=== PATIENT | female | born 1950 | race Caucasian/White ===

== ENCOUNTER → 2017-11-09 14:45 | Outpatient (BNVA) | payer MEDICARE, BC, SELFPAY | PROVIDERS: PCP Family Medicine; Visit Provider Psychiatry & Neurology Neurology | DX: G24.5 Blepharospasm (principal); G35 Multiple sclerosis | CPT/HCPCS: 99205 ==

== ENCOUNTER 2018-04-06 00:58 | Outpatient (CLI) | payer MEDICARE, BC, SELFPAY ==
--- NOTE | 2018-04-06 11:23 | DI.RAD_ITS ---
SYMPTOMS/DIAGNOSIS: DIFFICULTY SWALLOWING PA AND LATERAL CHEST: There are no prior comparison exams. The cardiac and mediastinal contours have a normal appearance. The lungs are well inflated and clear. No infiltrate or effusion is seen. There is no visible hiatal hernia or esophageal dilatation. There is scoliosis of the upper thoracic spine. IMPRESSION: No acute abnormality.
--- NOTE | 2018-04-06 11:44 | DI.US_ITS ---
SYMPTOMS/DIAGNOSIS: DIFFICULTY SWALLOWING, RIGHT SIDE SORE WHEN SWALLOWING, STABBING SENSATION WHEN COUGHING, ? THYMOMA NECK ULTRASOUND: There are no prior comparison exams. The overall thyroid echotexture is slightly heterogeneous. The right lobe measures 1.4 x 1.5 x 3.7 cm. There is a 10 mm isoechoic nodule in the mid right lobe of the thyroid. There are no cystic areas of associated calcifications. A similar-appearing isoechoic nodule is seen at the lower pole measuring 9 mm in greatest dimension. The left lobe measures 1.3 x 1.1 x 4.2 cm. There is a circumscribed hypoechoic nodule at the upper pole of the left lobe and a 3 mm hypoechoic nodule at the mid left lobe. No suspicious nodules are identified. Normal size lymph nodes were seen on both sides of the anterior neck. No suspicious masses or fluid collections are seen. IMPRESSION: Mildly heterogeneous thyroid with several small benign-appearing nodules.
== END 2018-04-06 01:18 ==
PROVIDERS: PCP Family Medicine; Visit Provider Family Medicine
DX: R13.10 Dysphagia, unspecified (principal); E04.2 Nontoxic multinodular goiter
CPT/HCPCS: 76536; 71046

== ENCOUNTER 2018-09-21 00:37 | Outpatient (CLI) | payer MEDICARE, BC, SELFPAY ==
--- NOTE | 2018-09-21 08:00 | CER_ITS ---
ADDENDUM The report should say: Atrial fibrillation was present.? Total time in atrial fibrillation 26 minutes.? Longest episode 18 minutes.? Average heart rate in atrial fibrillation 57 bpm DP/ml 11/27/18 d&t Emerson Hitchcock M.D. DATE OF DICTATION: October 23, 2018 PREVENTICE MONITOR REPORT STUDY INDICATION: Paroxysmal atrial fibrillation. REQUESTING PROVIDER: Adalgisa Cho M.D. FINDINGS: The patient was monitored for 26 days and 8 hours. Average heart rate 71 bpm, range 55 to 111 bpm. Atrial fibrillation was present. Total time in atrial fibrillation 26 minutes. Longest episode 52 minutes. Average heart rate in atrial fibrillation 57 bpm. One 6-beat ventricular run, 191 bpm. No pauses greater than 3 seconds. No high-degree heart block. Sixteen patient events. Two episode correlated with an atrial runs with heart rates of 145 to 151 bpm. One episode correlated with atrial fibrillation, with heart rate of 130 bpm. One event correlated with PAC's. All other events did not correlate with arrhythmias. FINAL INTERPRETATION: Paroxysmal atrial fibrillation with overall controlled ventricular response, at times symptomatic. CC: Dictated by: MINDY HUSAIN,PhD,ABHISHEK Dictated:: 10/23/18 0823 <Electronically signed by Abhishek Doherty M.D.> 10/23/18 0439
--- NOTE | 2018-10-23 10:43 | CER_ITS ---
DATE OF DICTATION: October 23, 2018 PREVENTICE MONITOR REPORT STUDY INDICATION: Paroxysmal atrial fibrillation. REQUESTING PROVIDER: Adalgisa Cho M.D. FINDINGS: The patient was monitored for 26 days and 8 hours. Average heart rate 71 bpm, range 55 to 111 bpm. Atrial fibrillation was present. Total time in atrial fibrillation 26 minutes. Longest episode 52 minutes. Average heart rate in atrial fibrillation 57 bpm. One 6-beat ventricular run, 191 bpm. No pauses greater than 3 seconds. No high-degree heart block. Sixteen patient events. Two episode correlated with an atrial runs with heart rates of 145 to 151 bpm. One episode correlated with atrial fibrillation, with heart rate of 130 bpm. One event correlated with PAC's. All other events did not correlate with arrhythmias. FINAL INTERPRETATION: Paroxysmal atrial fibrillation with overall controlled ventricular response, at times symptomatic.
== END 2018-09-21 00:57 ==
PROVIDERS: PCP Internal Medicine; Visit Provider Internal Medicine
DX: I48.0 Paroxysmal atrial fibrillation (principal)
CPT/HCPCS: 93270

== ENCOUNTER 2018-10-23 08:23 | Outpatient (CLI) | payer MEDICARE, BC, SELFPAY | END 2018-10-23 08:43 | PROVIDERS: PCP Internal Medicine; Referring Provider Internal Medicine; Visit Provider Student in an Organized Health Care Education/Training Program | DX: I48.0 Paroxysmal atrial fibrillation (principal) | CPT/HCPCS: 93228 ==

== ENCOUNTER → 2018-10-30 09:15 | Outpatient (BNVA) | payer MEDICARE, BC, SELFPAY | PROVIDERS: PCP Internal Medicine; Visit Provider Psychiatry & Neurology Neurology | DX: G35 Multiple sclerosis (principal); G24.5 Blepharospasm | CPT/HCPCS: 99214 ==

== ENCOUNTER 2018-11-20 00:51 | Outpatient (CLI) | payer MEDICARE, BC, SELFPAY ==
--- NOTE | 2018-11-20 11:28 | DI.MRI_ITS ---
EXAM: MR BRAIN WO CLINICAL HISTORY: multiple sclerosis, G35, stable. TECHNIQUE: Multiplanar multisequence MRI was performed. COMPARISON: MRI ORBIT/FACE W/WO CONTRAST from 06/26/2009 FINDINGS: MR examination of the brain was performed according to the usual protocol with additional of FLAIR im aging in sagittal projection. Current examination is compared with prior MRI of 02/03/2017. Note is again made of numerous areas of abnormal signal in periventricular white matter in a pattern consist ent with multiple sclerosis. No gross interval change in appearance in comparison with the previous study, there may be slight interval decrease in intensity of the periventricular lesions since the pr evious examination. No new lesion identified. Diffusion-weighted imaging is unremarkable with no ev idence of infarct. Susceptibility weighted imaging unremarkable with no evidence of hemorrhage. There is normal flow void in the czdeqw-nw-Rnkeqa vasculature. The orbital and temporal bone structu res appear intact. Pituitary appears intact. IMPRESSION: Stable appearance of periventricular white matter lesions since 02/03/2017, patient reportedly has a history of multiple sclerosis.
== END 2018-11-20 01:11 ==
PROVIDERS: PCP Internal Medicine; Visit Provider Psychiatry & Neurology Neurology
DX: G35 Multiple sclerosis (principal)
CPT/HCPCS: 70551

== ENCOUNTER → 2018-12-13 09:15 | Outpatient (BNVA) | payer MEDICARE, BC, SELFPAY | PROVIDERS: PCP Internal Medicine; Referring Provider Internal Medicine; Visit Provider Psychiatry & Neurology Neurology | DX: G24.5 Blepharospasm (principal); G35 Multiple sclerosis | CPT/HCPCS: 99214 ==

== ENCOUNTER 2019-03-14 02:25 | Outpatient (CLI) | payer MEDICARE, BC, SELFPAY ==
--- NOTE | 2019-03-14 08:12 | DI.MAMMO_ITS ---
EXAM: MG MAMMO SCREENING CLINICAL HISTORY: screening,Z12.39. TECHNIQUE: Bilateral full field digital CC and MLO mammographic images were obtained with 3D tomosyn thesis and utilizing computer aided detection (CAD). COMPARISON: Available for comparison. FINDINGS: Masses/Architectural Distortion: None seen. Microcalcifications: No suspicious pleomorphic-type are seen. Skin Thickening/Nipple Retraction: None. IMPRESSION: 1. No significant interval change with no specific features of malignancy noted. 2. Unless there is more urgent need, screening mammography is recommended, as per [employer] guidelines. ACR BI-RAD Category- 1 Negative Breast Density - Category B - Scattered areas of fibroglandular density A negative radiographic report should not delay biopsy if a dominant or clinically suspicious mass is present. Up to ten percent of cancers are not identified on mammography. A negative report may reinforce clinical impression. Adenosis and dense breasts may obscure an underlying neoplasm. False positive reports average 6 to 10%. Patient will receive a letter notifying them of these results.
== END 2019-03-14 02:45 ==
PROVIDERS: PCP Internal Medicine; Visit Provider Internal Medicine
DX: Z12.31 Encounter for screening mammogram for malignant neoplasm of breast (principal)
CPT/HCPCS: 77063; 77067

== ENCOUNTER 2019-03-14 02:37 | Outpatient (CLI) | payer MEDICARE, BC, SELFPAY ==
[2019-03-14 08:53] LABS: Calculated LDL 147 mg/dL (<100); Cholesterol 234 mg/dL (<200); Glucose 86 mg/dL (74-106); HDL Cholesterol 76 mg/dL (40-60); Triglyceride 56 mg/dL (<150)
== END 2019-03-14 02:57 ==
PROVIDERS: PCP Internal Medicine; Visit Provider Internal Medicine
DX: E78.5 Hyperlipidemia, unspecified (principal); Z13.1 Encounter for screening for diabetes mellitus
CPT/HCPCS: 36415; 80061; 82947

== ENCOUNTER 2019-05-31 13:08 | Outpatient (CLI) | payer MEDICARE, BC, SELFPAY ==
--- NOTE | 2019-05-31 15:00 | DI.RAD_ITS ---
EXAM: XR WRIST LT COMPLETE CLINICAL HISTORY: Pain after a fall, has osteoporosis,[id number]. TECHNIQUE: 2D digital imaging was performed. COMPARISON: No exams were available for comparison FINDINGS: BONES: There is a bony fragment seen on the lateral view that appears to project over the region of t he pisiform on the PA and oblique views. Multiple small cysts are seen within the pisiform. Other c ysts are seen in the navicular and ulnar styloid.. JOINTS: The carpal bones are normally aligned. SOFT TISSUE: Posterior soft tissue swelling. IMPRESSION: Bony fragment seen at the dorsal aspect of the wrist overlying the region of the pisiform. This coul d represent acute versus old fracture. DATA REPOSITORY: RADIATION DOSE DELIVERED:
== END 2019-05-31 13:28 ==
PROVIDERS: PCP Internal Medicine; Visit Provider Family Medicine
DX: M25.532 Pain in left wrist (principal); M79.89 Other specified soft tissue disorders; M81.0 Age-related osteoporosis without current pathological fracture; W19.XXXA Unspecified fall, initial encounter
CPT/HCPCS: 73110

== ENCOUNTER → 2019-12-12 09:09 | Outpatient (BNVA) | payer MEDICARE, BC, SELFPAY | PROVIDERS: PCP Internal Medicine; Referring Provider Internal Medicine; Visit Provider Psychiatry & Neurology Neurology | DX: G24.5 Blepharospasm (principal); G35 Multiple sclerosis; I48.0 Paroxysmal atrial fibrillation | CPT/HCPCS: 99214 ==

== ENCOUNTER 2020-11-13 03:30 | Outpatient (CLI) | payer MEDICARE, BC, SELFPAY ==
[2020-11-13 13:42] LABS: HCT 44.2 % (36.0-46.0); HGB 14.9 g/dL (11.2-15.7); MCH 30.3 pg (27.0-33.0); MCHC 33.7 % (32.0-36.0); MPV 10.2 fL (8.0-11.0); Platelet Count 213 10^3/uL (130-400); RBC 4.91 10^6/uL (3.93-5.22); RDW 11.7 % (11.7-14.6); RDW-SD 38.3 fL; WBC 6.72 10^3/uL (4.4-10.8)
[2020-11-13 13:45] LABS: ESR 4 mm/hr (0-30)
[2020-11-14 10:22] LABS: Lyme Ab w Rflx to Lyme Confirm Negative (Negative)
== END 2020-11-13 03:31 | disposition home or self-care (01) ==
LOC: LBO 03:30
PROVIDERS: PCP Internal Medicine; Visit Provider Nurse Practitioner Adult Health
DX: M25.562 Pain in left knee (principal); M25.462 Effusion, left knee
CPT/HCPCS: 36415; 85027; 85652; 86618

== ENCOUNTER → 2020-12-10 09:31 | Outpatient (BNVA) | payer MEDICARE, BC, SELFPAY | PROVIDERS: PCP Internal Medicine; Visit Provider Psychiatry & Neurology Neurology | DX: G24.5 Blepharospasm (principal); G35 Multiple sclerosis; I48.0 Paroxysmal atrial fibrillation | CPT/HCPCS: 99214 ==

== ENCOUNTER 2020-12-10 10:11 | Emergency (ER) | payer MEDICARE, BC, SELFPAY ==
[2020-12-10] VITALS (49 sets, daily range): BP systolic 83–121; BP diastolic 40–100; PULSE 66–165; RESP 15–31; TEMP 36.2; O2SAT 94–99
--- NOTE | 2020-12-10 10:00 | RT.EKG_ITS ---
APPROVED REPORT Exam: Resting ECG Reason for Exam: shortness of breath, tachycardia Patient Location: E HR:151 bpm ECG Measurements Heart Rate 151 AXIS LA [id number] P [id number] QRSd 76 QRS 92 QT 285 T 28 QTc 455 Conclusion Atrial fibrillation with rapid V-rate...A-rate 461 Ventricular premature complex...V complex w/ short R-R interval Right axis deviation...QRS axis ( 91,269) Low voltage, precordial leads...precordial leads <1.0mV. Afib w/ RVR. No STEMI.
--- NOTE | 2020-12-10 10:13 | ED.GENADUL_ITS ---
Discharge Plan Disposition Patient Disposition: HOME Condition: Improving Discharge Details Clinical Impression: Atrial fibrillation Primary Care Provider: Adalgisa Cho ED Provider: Adrienne Alford Home Meds and New Rx's Prescriptions: Continued botox 60 unit IJ .q3 months RF: 0 cholecalciferol (vitamin D3) 2,000 unit tablet 2,000 unit PO DAILY RF: 0 Women's Multivitamin 18 mg iron-400 mcg-500 mg tablet 1 tab PO DAILY RF: 0 alendronate [Fosamax] 70 mg tablet 70 mg PO QWEEK Qty: 12 RF: 3 diltiazem HCl 120 mg capsule,extended release 12 hr 120 mg PO BID RF: 0 Eliquis 5 mg tablet 5 mg PO BID RF: 0 zinc acetate 25 mg (zinc) capsule 25 mg PO DAILY PRNRF: 0 Calcium 600 + D(3) 600 mg calcium- 200 unit capsule PO BID RF: 0 Discharge Instructions Instructions: A-fib (Atrial Fibrillation) (ED) Additional Instructions: Your lab work, EKG and chest x-ray today is reassuring and does not note evidence of acute significant findings. Increase your diltiazem from 1 tab of 120 mg to 2 tabs of 120 mg for a total of 240 mg once daily starting tomorrow. Call your primary care doctor's office tomorrow to schedule a follow-up appointment for reevaluation within the next few days. You have been placed on care management list to help arrange for follow-up appointment with cardiology for reevaluation in the next 2 weeks. You can also call the electronic industrial controls mechanic Dr. Alvarado's office to confirm this appointment. Return immediately to the emergency department if you develop any worsening or new concerning symptoms. Referrals: Anna Alvarado MD [ [facility] STAFF PHYSICIAN] - Discharge Data Discharge Date/Time-TO BE ENTERED AT DEPARTURE: 12/10/20 15:19 Discharge Physician: Adrienne Alford Medical Decision Making 70-year-old female with a history of paroxysmal atrial fibrillation on diltiazem presents with dyspnea on exertion and palpitations with fluttering for the past week. Recent ED visit in [place] with increasing her diltiazem from 120mg to 240mg once daily. She only took 120 mg this morning and has had worsening of her fluttering and shortness of breath. Sent from Dr. Lou's office for her symptoms. Heart rate 140s and A. fib on arrival. EKG notes a rate of 151, atrial fibrillation no STEMI. Blood pressure within normal limits. She has no complaint of chest pain. Will obtain a cardiac work-up and give a dose of diltiazem IV and reassess Heart rate 80s A. fib on reassessment. Patient feels much better. Case discussed with [facility] cardiology who recommended that patient continue her 240 mg diltiazem dosing in the a.m. and follow-up with her PCP in 1 week and with cardiology in 2 weeks. Labs and imaging reviewed and unremarkable. Patient's heart rate remained in the 80s in A. fib. She felt occasional fluttering but felt comfortable going home. She denied any chest pain or shortness of breath. Patient placed on care management list to help arrange for follow-up appointment with cardiology for reevaluation. She was given an additional dose of her 120 mg diltiazem p.o. here per cardiology recommendations. She states she had plenty of her diltiazem at home. Usual and customary return precautions given prior to discharge. Medical Records Medical records reviewed: Yes I reviewed the patient's medical records. Imaging Data Radiologic Study: Radiologist's impression: XR PORTABLE CHEST AP CLINICAL HISTORY: tachycardia, sob, r/o acute disease. TECHNIQUE: 2D digital imaging was performed. COMPARISON: No exams were available for comparison FINDINGS: Heart size is upper normal. The mediastinum is not widened. Chest leads in place Lungs are clear. No infiltrates nor obvious pleural effusions. IMPRESSION: No acute pulmonary findings on this single AP portable view of the chest. Lab Data Lab results reviewed: Yes I reviewed the patient's lab results. Labs: Laboratory Tests Range/Units 12/10/20 12/10/20 10:25 10:25 WBC (4.4-10.8) 10^3/uL 6.84 RBC (3.93-5.22) 10^6/uL 5.45 H Hgb (11.2-15.7) g/dL 16.6 H Hct (36.0-46.0) % 49.4 H MCV (80-95) fL 90.6 MCH (27.0-33.0) pg 30.5 MCHC (32.0-36.0) % 33.6 RDW (11.7-14.6) % 11.9 Plt Count (130-400) 10^3/uL 210 MPV (8.0-11.0) fL 11.6 H Immature Gran % 0.3 Neutrophils % 59.6 Lymphocytes % 31.3 Monocytes % 7.5 Eosinophils % 0.9 Basophils % 0.4 Nucleated RBC % % 0 Absolute Neutrophils (1.2-6.7) 10^3/uL 4.08 Absolute Lymphocytes (1.2-3.4) 10^3/uL 2.14 Absolute Monocytes (0.1-0.8) 10^3/uL 0.51 Absolute Eosinophils (0.0-0.7) 10^3/uL 0.06 Absolute Basophils (0.0-0.2) 10^3/uL 0.03 Sodium (136-145) mmol/L 143 Potassium (3.5-5.1) mmol/L 3.9 Chloride (98-107) mmol/L 106 Carbon Dioxide (21.0-32.0) mmol/L 29.2 Anion Gap (3-11) mmol/L 7.8 BUN (7-18) mg/dL 14 Creatinine (0.55-1.02) mg/dL 0.9 Estimated GFR/1.73 m2 (mL/min/1.73m2) >= 60.00 Glucose (74-106) mg/dL 100 Calcium (8.5-10.1) mg/dL 9.5 Magnesium (1.8-2.4) mg/dL 2.2 Total Bilirubin (0.2-1.0) mg/dL 0.8 AST (15-37) U/L 16 ALT (14-59) U/L 30 Alkaline Phosphatase (46-116) U/L 65 Troponin I (<0.06) ng/mL < 0.05 Total Protein (6.4-8.2) g/dL 7.5 Albumin (3.4-5.0) g/dL 3.9 ECG Data Attestation: I personally reviewed and interpreted this ECG (s) as follows: Interpretation: #1 -- rate of 151, afib w/ rvr, no stemi. #2 -- rate of 86, sinus, no acute st elevation or depression, QRS 83, Qtc 423. HPI General Mode of arrival: ambulatory . Date/Time Provider Initiated Documentation: 12/10/20 10:11 . Limitations to Documentation: no limitations . Information obtained by: patient . HPI Narrative: Pt is a 70yo F w/ a h/o paroxysmal atrial fibrillation diagnosed 5 years ago and taking 120mg diltiazem since then presents for intermittent shortness of breath, worse with exertion, palpitations and fluttering in her chest for the past week. She was recently in [place] for a vacation and has worsening of her palpitations and was seen in an ED in [place] 2 days ago and had a cardiac workup and was given IV diltiazem and her heart rate decreased and was discharged to home and advised to increase her once daily dosing of diltiazem to 240mg. She states she did take her 240mg dosing yesterday morning but only took 120mg this morning as she states she was planning on taking the other 120mg this evening. She is here today because her palpitations and fluttering have gotten progressively worse over the past 2 days. She admits to occasional twinge in her left chest last week but states she has not felt this for the past 4 days. She states she was also started on eliquis upon her discharge from the ED in [place]. Related Data Home Medications Medication Instructions Recorded Confirmed cholecalciferol (vitamin D3) 50 2,000 unit PO DAILY 11/02/17 12/10/20 mcg (2,000 unit) tablet [id number]-Ca carb-vit K 1 tab PO DAILY 11/02/17 12/10/20 18 mg iron-400 mcg-500 mg tablet calcium carbonate-vitamin D3 600 cap PO BID cap 06/12/18 12/10/20 mg calcium-200 unit capsule botox 60 unit IJ .q3 months 08/19/20 12/10/20 alendronate 70 mg tablet 70 mg PO QWEEK #12 tab 09/25/20 12/10/20 apixaban 5 mg tablet 5 mg PO BID 12/10/20 12/10/20 diltiazem HCl 120 mg 120 mg PO BID cap 12/10/20 12/10/20 capsule,extended release 12 hr zinc acetate 25 mg (zinc) capsule 25 mg PO DAILY PRN 12/10/20 12/10/20 Previous Rx's Medication Instructions Recorded alendronate 70 mg tablet 70 mg PO QWEEK #12 tab 09/25/20 Allergies Allergy/AdvReac Type Severity Reaction Status Date / Time No Known Allergies Allergy Verified 12/10/20 10:20 Review of Systems All systems reviewed & are unremarkable except as noted in HPI and below Constitutional Constitutional: Reports as per HPI, Denies chills and Denies fever(s) Eyes Eyes: Denies blurry vision ENT Ears, Nose, Mouth, and Throat: Denies dizziness, Denies sore throat and Denies throat swelling Cardiovascular Cardiovascular: Denies chest pain, Reports palpitations and Reports dyspnea Respiratory Respiratory: Denies cough and Reports dyspnea Gastrointestinal Gastrointestinal: Denies abdominal pain, Denies diarrhea and Denies vomiting Genitourinary Genitourinary: Denies hematuria and Denies dysuria Musculoskeletal Musculoskeletal: Denies back pain and Denies numbness Integumentary/Breasts Skin/Breast: Denies lesions and Denies rash Neurologic Neurologic: Denies dizziness, Denies localized weakness and Denies numbness Endocrine Endocrine: Reports palpitations Allergic/Immunologic Allergic/Immunologic: Denies throat swelling [facility] Medical History (Updated 12/10/20 @ 15:03 by Adrienne Alford DO) Anxiety Cardiac arrhythmia Afib and pVc Cholelithiasis Depression Hiatal hernia History of lumbar puncture Hyperlipidemia Multiple sclerosis Optic neuritis Osteoporosis (01/18/17) Paroxysmal A-fib Polyp of cervix Vitamin D deficiency Surgical History Ankle fracture, left s/p ORIF 2000 or 2005 Ankle fracture, right s/p ORIF 2000 or 2004 History of appendectomy 1967 History of colposcopy with cervical biopsy Family History Mother Hypertension Alzheimer disease Father Migraine FH: mental illness Paternal Grandfather Stomach cancer Paternal Grandmother No problems noted. Maternal Grandfather , Age 40 No problems noted. 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, 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 [employer] Pets and animals: Yes (2) Pets and animals: cat(s) Current gender identity: female How often do you talk on the phone with friends or family?: three or more times per week How often do you get together with friends or relatives?: twice per week How often do you attend christianity or confucianist services?: 4 or more times per year Do you belong to any clubs or organized social groups?: yes Panel score (0-1 are the most socially isolated patients): 3 What type of physical activity do you participate in: none and walking Duration: < 15 minutes/day Jennifer/Gnosticist: Unitarian Universalist Seatbelt use: always Drive intox or ride w/intox truck driver heavy: No Working smoke detector in home: Yes Fire extinguisher in home: Yes Carbon monox detector in home: Yes Firearms in home: No Exam Const General: cooperative, healthy appearing and no acute distress HENMT Head: normal to inspection Face and sinus: normal facial exam Eyes General: appearance normal, both eyes and all related structures EOM: EOM intact bilaterally Neck Neck: normal visual inspection and No submandibular swelling Lymphatic: no lymphadenopathy noted Chest Chest: normal inspection of the chest and no tenderness Resp Effort & Inspection: normal respiratory effort and able to speak in complete sen tences Auscultation: clear to auscultation bilaterally Cardio Rate: tachycardic Rhythm: regular rhythm GI Inspection: normal to inspection Palpation: soft, not firm, not rigid and nontender Auscultation: normal bowel sounds Back/Spine/Pelvis Pelvis: no pain with anterior-posterior compression Skin General skin exam: no rashes or lesions noted Neuro General: patient alert, patient awake and patient oriented x3 Cognition: normal cognition Speech: speech normal Motor: muscle tone normal throughout Sensory Exam: no sensory deficits noted Extrem General: normal to inspection, full ROM, capillary refill normal, no calf tenderness bilaterally and no edema Psych Appearance: grossly normal Mental Status: mental status grossly normal Speech and Movement: speech and movement normal Affect: normal affect
--- NOTE | 2020-12-10 10:30 | DI.RAD_ITS ---
Exam(s) XR PORTABLE CHEST AP EXAM: XR PORTABLE CHEST AP CLINICAL HISTORY: tachycardia, sob, r/o acute disease. TECHNIQUE: 2D digital imaging was performed. COMPARISON: No exams were available for comparison FINDINGS: Heart size is upper normal. The mediastinum is not widened. Chest leads in place Lungs are clear. No infiltrates nor obvious pleural effusions. IMPRESSION: No acute pulmonary findings on this single AP portable view of the chest. DATA REPOSITORY: RADIATION DOSE DELIVERED: All CT scans at this facility use at least one of these dose optimization techniques: automated exposure control; mA and/or kV adjustment per patient size (includes targeted e xams where dose is matched to clinical indication); or iterative reconstruction.
[2020-12-10 10:35] LABS: Abs Immature Grans 0.02 10^3/uL (0.0-0.06); Absolute Basophil Count 0.03 10^3/uL (0.0-0.2); Absolute Eosinophil Count 0.06 10^3/uL (0.0-0.7); Absolute Lymphocyte Count 2.14 10^3/uL (1.2-3.4); Absolute Monocyte Count 0.51 10^3/uL (0.1-0.8); Absolute Neutrophil Count 4.08 10^3/uL (1.2-6.7); Basophils % 0.4; Eosinophils % 0.9; HCT 49.4 % (36.0-46.0); HGB 16.6 g/dL (11.2-15.7); Immature Grans % 0.3; Lymphocytes % 31.3; MCH 30.5 pg (27.0-33.0); MCHC 33.6 % (32.0-36.0); MCV 90.6 fL (80-95); MPV 11.6 fL (8.0-11.0); Monocytes % 7.5; Neutrophils % 59.6; Nucleated RBC 0 %; Platelet Count 210 10^3/uL (130-400); RBC 5.45 10^6/uL (3.93-5.22); RDW 11.9 % (11.7-14.6); RDW-SD 39.4 fL; WBC 6.84 10^3/uL (4.4-10.8)
[2020-12-10 10:51] LABS: ALT 30 U/L (14-59); AST 16 U/L (15-37); Albumin 3.9 g/dL (3.4-5.0); Alkaline Phosphatase 65 U/L (46-116); Anion Gap 7.8 mmol/L (3-11); BUN 14 mg/dL (7-18); Bilirubin, Total 0.8 mg/dL (0.2-1.0); CO2 29.2 mmol/L (21.0-32.0); CREATININE 0.9 mg/dL (0.55-1.02); Calcium 9.5 mg/dL (8.5-10.1); Chloride 106 mmol/L (98-107); Glucose 100 mg/dL (74-106); Magnesium 2.2 mg/dL (1.8-2.4); Potassium 3.9 mmol/L (3.5-5.1); Sodium 143 mmol/L (136-145); Total Protein 7.5 g/dL (6.4-8.2)
[2020-12-10] MEDS: Normal Saline 500 ML IV ×2 (10:54→11:42)
[2020-12-10] MEDS: dilTIAZem 25 MG/5 ML VIAL 20 MG IVP (10:55)
[2020-12-10 10:57] LABS: Troponin I < 0.05 ng/mL (<0.06)
--- NOTE | 2020-12-10 11:00 | RT.EKG_ITS ---
APPROVED REPORT Exam: Resting ECG Reason for Exam: rapid heart rate Patient Location: E HR:86 bpm ECG Measurements Heart Rate 86 AXIS IA [id number] P [id number] QRSd 83 QRS 86 QT 353 T 23 QTc 423 Conclusion Atrial fibrillation...V-rate 70-105, irreg A-activity Low voltage, precordial leads...precordial leads <1.0mV. Afib. No STEMI. I have reviewed and interpreted ECG and agree with software generated interpretation.
--- NOTE | 2020-12-10 11:54 | NUR.NOTE ---
Nursing Note: Referral faxed to [facility] Cardiology for follow up of afib, discuss medications, in 2 to 3 weeks. [facility] Cardiology were consulted. Brittaney Ramos
[2020-12-10] MEDS: dilTIAZem CD 120 MG CAPCR PO (12:25)
== END 2020-12-10 15:19 | disposition home or self-care (01) ==
PROVIDERS: Emergency Provider Physician Assistant; PCP Internal Medicine
DX: I48.0 Paroxysmal atrial fibrillation (principal); R06.00 Dyspnea, unspecified; R00.0 Tachycardia, unspecified
CPT/HCPCS: 36415; 80053; 93005; 96361; 96374; 99214; 99284; 71045; 83735; 84484; 85025; 93010

== ENCOUNTER 2020-12-11 11:41 | Outpatient (CLI) | payer MEDICARE, BC, SELFPAY ==
--- NOTE | 2020-12-11 11:30 | RT.EKG_ITS ---
APPROVED REPORT Exam: Resting ECG Reason for Exam: afib Patient Location: O HR:110 bpm ECG Measurements Heart Rate 110 AXIS DC [id number] P [id number] QRSd 77 QRS 64 QT 323 T 26 QTc 437 Conclusion Atrial fibrillation...V-rate 80-135, irreg A-activity Low voltage, precordial leads...precordial leads <1.0mV
== END 2020-12-11 11:42 | disposition home or self-care (01) ==
LOC: DI.KIM 11:42
PROVIDERS: PCP Internal Medicine; Visit Provider Family Medicine
DX: I48.91 Unspecified atrial fibrillation (principal)
CPT/HCPCS: 93010

== ENCOUNTER 2020-12-22 22:03 | Inpatient (IN) | payer MEDICARE, BC, SELFPAY ==
[2020-12-22] VITALS (23 sets, daily range): BP systolic 101–130; BP diastolic 72–89; PULSE 106–142; RESP 7–23; O2SAT 93–99
--- NOTE | 2020-12-22 22:00 | RT.EKG_ITS ---
APPROVED REPORT Exam: Resting ECG Reason for Exam: rapid heart rate Patient Location: E HR:139 bpm ECG Measurements Heart Rate 139 AXIS WA 130 P 94 QRSd 87 QRS 0 QT 327 T 49 QTc 498 Conclusion Probable aflutter Low voltage, precordial leads. Repol abnrm diffuse leads...ST-T neg, ant/lat/inf
--- NOTE | 2020-12-22 22:11 | ED.GENADUL_ITS ---
Discharge Plan Disposition Condition: Improving Discharge Details Chief Complaint: Palpitatns Admit Date/Time: 12/24/20 16:12 Admit Provider: Emerson Kohler Attending Provider: Emerson Kohler Primary Care Provider: Adalgisa Cho ED Provider: Soha Martínez Discharge Instructions Activity:: Activity as Tolerated Equipment/Supplies:: No Equipment Needed Diet:: Normal Diet Discharge Orders Discharge Orders: Discharge Order (Routine); Ordered 12/25/20 Ordered By: Shiraz Harrell Discharge Data Discharge Date/Time-TO BE ENTERED AT DEPARTURE: 12/23/20 08:19 Medical Decision Making Patient is a pleasant 70-year-old female presenting today with chief complaint of tachycardia. Patient reports this began around 7:30 PM today. Has a history of atrial fibrillation has been here for rapid ventricular response recently, was last seen on 12/10/2020. At that time, patient cardioverted with 20 mg of IV Cardizem. Patient reports that since being discharged she has worked with your primary care determine what medication will work well for her. She is intermittently gone into the 120s but has not stands not been in the 140s like she is today. She reports that this morning she took 240 mg of diltiazem. This evening at 7 PM prior to the onset of her symptoms she took 12.5 mg of metop rolol. When her symptoms began she then contacted her primary care who initially advised to take another 120 mg of diltiazem. She then spoke with him again and was advised to take 25 mg of metoprolol. She denies feeling short of breath. She not had any chest pain. She does feel slightly lightheaded. Feels that this rate is very regular compared to when she has been here in the past. Said that she can have a fluttering sensation. Patient is anticoagulated on apixaban twice daily. She denies any caffeine or other stimulants. She denies any other new medications or herbal supplementations. States that she has been feeling well, and has not had any fevers or chills. On exam, patient appears nontoxic. Her heart rate is in the 140s but she appears clinically well. Blood pressure stable at 130/89. Her lungs are clear. Patient is tachycardic on auscultation but otherwise cardiac exam is normal. No lower extremity edema or calf tenderness. EKG was reviewed by Dr. Stuart. Patient is in a rapid rate at 139 probable a flutter. Will give 10 mg IV Cardizem and reassess. Patient continues to have a heart rate in the 130s. Blood pressures slightly lower than a systolic of 107. Patient continues to feel well. Patient is receiving IV hydration. Labs without sigfnicant abnromality, baseline for hte patient. Troponin WNL. Reviewed previously labs and added on TSH with reflex T4. Dr. Kohler evaluated the patient. He recommended 2.5mg of Verapamil. Patient received total of 5mg Verapamil with improvement of her rate. Dr. Kohler at bed side. Patient admitted for continued monitoring. Hemodynamically stable, feeling much improved with rate control HPI General Mode of arrival: ambulatory . Date/Time Provider Initiated Documentation: 12/22/20 22:04 . Limitations to Documentation: no limitations . Information obtained by: patient and RN notes reviewed . History of Present Illness 70 year old F presents to the emergency department with the chief c omplaint of elevated HR, described as moderate and similar to prior episodes, Quality is described as constant (states she is feeling slightly light headed), Patient reports no radiation. Patient started experiencing this hour(s) (1930) and it has been constant. No relieving factors improve symptom(s), No exacerbating factors reported . Patient notes denies chest pain, cough, diaphoresis, fever/chills, loss of appetite, nausea/vomiting, rash, shortness of breath, syncope and weakness. Patient did receive the following treatments prior to arrival, other (metoprolol and diltiazem) Related Data Home Medications Medication Instructions Recorded Confirmed cholecalciferol (vitamin D3) 50 2,000 unit PO DAILY 11/02/17 12/22/20 mcg (2,000 unit) tablet tihzdrml-xzo-kyua-FA-Ca carb-vit K 1 tab PO DAILY 11/02/17 12/22/20 18 mg iron-400 mcg-500 mg tablet calcium carbonate-vitamin D3 600 cap PO BID cap 06/12/18 12/10/20 mg calcium-200 unit capsule botox 60 unit IJ .q3 months 08/19/20 12/10/20 alendronate 70 mg tablet 70 mg PO QWEEK #12 tab 09/25/20 12/22/20 zinc acetate 25 mg (zinc) capsule 25 mg PO DAILY PRN 12/10/20 12/22/20 Eliquis 5 mg PO BID #60 tab 12/25/20 bisoprolol fumarate 5 mg PO DAILY #30 tab 12/25/20 verapamil [Calan SR] 240 mg PO DAILY #30 tab 12/25/20 Previous Rx's Medication Instructions Recorded alendronate 70 mg tablet 70 mg PO QWEEK #12 tab 09/25/20 Eliquis 5 mg PO BID #60 tab 12/25/20 bisoprolol fumarate 5 mg PO DAILY #30 tab 12/25/20 verapamil [Calan SR] 240 mg PO DAILY #30 tab 12/25/20 Allergies Allergy/AdvReac Type Severity Reaction Status Date / Time No Known Allergies Allergy Verified 12/22/20 22:12 General PATRIZIA: 2 Review of Systems Constitutional Constitutional: Reports as per HPI, Denies chills, Denies fever(s) and Denies headache(s) ENT Ears, Nose, Mouth, and Throat: Denies headache(s) Cardiovascular Cardiovascular: Reports as per HPI, Denies chest pain, Denies chest pain with activity, Denies lightheadedness, Denies radiating jaw, neck or arm pain, Reports palpitations and Reports dyspnea Respiratory Respiratory: Reports as per HPI, Denies chest congestion, Denies cough, Denies pain on inspiration, Denies pain with cough, Reports dyspnea and Denies wheezing Gastrointestinal Gastrointestinal: Reports as per HPI, Denies abdominal pain, Denies diarrhea, Denies nausea and Denies vomiting Musculoskeletal Musculoskeletal: Reports as per HPI and Denies back pain Integumentary/Breasts Skin/Breast: Reports as per HPI and Denies rash Neurologic Neurologic: Reports as per HPI and Denies headache(s) Endocrine Endocrine: Reports palpitations Allergic/Immunologic Allergic/Immunologic: Denies wheezing [facility] Active Problem List Atrial flutter (Acute) Atrial fibrillation (Chronic) Functional disorder of intestine (Acute) Large breasts (Acute) Paroxysmal A-fib (Acute) Functional belching disorder (Acute) Globus sensation (Acute) Blepharospasm (Acute) Hiatal hernia (Chronic) Cholelithiasis (Chronic) Vitamin D deficiency (Chronic) Hyperlipidemia (Chronic) Anxiety (Chronic) Depression (Chronic) Osteoporosis (Chronic 01/18/17) Multiple sclerosis (Chronic) Medical History Cardiac arrhythmia Afib and pVc History of lumbar puncture Optic neuritis Surgical History Ankle fracture, left s/p ORIF 2000 or 2004 Ankle fracture, right s/p ORIF 2000 or 2004 History of appendectomy 1967 History of colposcopy with cervical biopsy Family History Mother Hypertension Alzheimer disease Father Migraine FH: mental illness Paternal Grandfather Stomach cancer Paternal Grandmother No problems noted. Maternal Grandfather , Age 40 No problems noted. 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 [employer] Pets and animals: Yes (2) Pets and animals: cat(s) Current gender identity: female How often do you talk on the phone with friends or family?: three or more times per week How often do you get together with friends or relatives?: twice per week How often do you attend jehovah's witness or latter day services?: 4 or more times per year Do you belong to any clubs or organized social groups?: yes Panel score (0-1 are the most socially isolated patients): 3 What type of physical activity do you participate in: none and walking Duration: < 15 minutes/day Jennifer/Muslim: Unitarian Universalist Seatbelt use: always Drive intox or ride w/intox mechanic driver: No Working smoke detector in home: Yes Fire extinguisher in home: Yes Carbon monox detector in home: Yes Firearms in home: No Do you feel safe at home: Yes Do you feel safe in your relationship?: Yes Exam Const General: cooperative, healthy appearing, comfortable, no acute distress and well developed Nutritional Appearance: average body habitus and well nourished Orientation: alert and awake HENMT Mouth: moist mucous membranes Resp Effort & Inspection: normal respiratory effort, able to speak in complete sentences and no respiratory distress Auscultation: clear to auscultation bilaterally, no rales, no rhonchi and no wheezes Cardio Rate: tachycardic Rhythm: regular rhythm Heart Sounds: S1 normal and S2 normal GI Inspection: normal to inspection, no edema and non-distended Palpation: soft, no hepatosplenomegaly, not firm, no guarding, not rigid and nontender Auscultation: normal bowel sounds Skin General skin exam: no rashes or lesions noted Trauma: no lacerations or abrasions Neuro General: patient alert and patient awake Cognition: normal cognition Speech: speech normal Gait: normal gait Extrem General: normal to inspection, capillary refill normal, no pedal edema, no calf tenderness and normal gait Psych Appearance: grossly normal and well kempt Mental Status: mental status grossly normal Speech and Movement: speech and movement normal
[2020-12-22] MEDS: dilTIAZem 25 MG/5 ML VIAL 10 MG IVP (22:39)
[2020-12-22 22:40] LABS: Abs Immature Grans 0.01 10^3/uL (0.0-0.06); Absolute Basophil Count 0.04 10^3/uL (0.0-0.2); Absolute Lymphocyte Count 3.75 10^3/uL (1.2-3.4); Absolute Monocyte Count 0.74 10^3/uL (0.1-0.8); Absolute Neutrophil Count 4.16 10^3/uL (1.2-6.7); Basophils % 0.5; Eosinophils % 1.1; HCT 49.5 % (36.0-46.0); HGB 16.8 g/dL (11.2-15.7); Immature Grans % 0.1; Lymphocytes % 42.6; MCH 30.7 pg (27.0-33.0); MCHC 33.9 % (32.0-36.0); MCV 90.5 fL (80-95); MPV 11.9 fL (8.0-11.0); Monocytes % 8.4; Neutrophils % 47.3; Nucleated RBC 0 %; Platelet Count 217 10^3/uL (130-400); RBC 5.47 10^6/uL (3.93-5.22); RDW 11.9 % (11.7-14.6); RDW-SD 39.4 fL
[2020-12-22 23:21] LABS: ALT 38 U/L (14-59); AST 14 U/L (15-37); Albumin 3.6 g/dL (3.4-5.0); Alkaline Phosphatase 63 U/L (46-116); Anion Gap 6.4 mmol/L (3-11); BUN 15 mg/dL (7-18); Bilirubin, Total 0.5 mg/dL (0.2-1.0); CO2 30.6 mmol/L (21.0-32.0); CREATININE 0.8 mg/dL (0.55-1.02); Chloride 108 mmol/L (98-107); Glucose 98 mg/dL (74-106); Magnesium 2.1 mg/dL (1.8-2.4); Potassium 4.3 mmol/L (3.5-5.1); Sodium 145 mmol/L (136-145); Total Protein 6.6 g/dL (6.4-8.2)
[2020-12-22 23:22] LABS: Troponin I < 0.05 ng/mL (<0.06)
[2020-12-22 23:28] LABS: Source Nasal/Nares
--- NOTE | 2020-12-22 23:34 | HPE_ITS ---
Date of service: 12/22/20 Time of Service: 23:34 Assessment and Plan Assessment and plan (1) Atrial fibrillation: Status: Chronic Assessment and plan: Afib-flutter, with poorly controlled rate. Does not seem to be responding to escalating doses of Cardizem. Would advise either titrating up the beta antonia or switching the Cardizem to Verapamil. Will admit for medication adjustment and titration. History of Present Illness History of Present Illness Chief Complaint: palpitations Narrative: 70 female with h/o PAF. 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 Returns with persistent and (tonight) increasing sense of irregular fluttering, after having taken additional doses of each today per PCP instruction. In ER, Afib-flutter with RVR noted, to 140s. Received 10 Cardizem IV with persistent rates 130s-140s. I was asked to evaluate for admission. Patient denies CP or SOB. At present has today received cumulatively 370 mg Cardizem and 37.5 of Lopressor. Review of Systems All systems reviewed & are unremarkable except as noted in HPI and below PFSH Active Problem List Atrial fibrillation (Chronic) Functional disorder of intestine (Acute) Large breasts (Acute) Paroxysmal A-fib (Acute) Functional belching disorder (Acute) Globus sensation (Acute) Blepharospasm (Acute) Hiatal hernia (Chronic) Cholelithiasis (Chronic) Vitamin D deficiency (Chronic) Hyperlipidemia (Chronic) Anxiety (Chronic) Depression (Chronic) Osteoporosis (Chronic 01/18/17) Multiple sclerosis (Chronic) Medical History Cardiac arrhythmia Afib and pVc History of lumbar puncture Optic neuritis Surgical History Ankle fracture, left s/p ORIF 2000 or 2004 Ankle fracture, right s/p ORIF 2000 or 2004 History of appendectomy 1967 History of colposcopy with cervical biopsy Family History Mother Hypertension Alzheimer disease Father Migraine FH: mental illness Paternal Grandfather Stomach cancer Paternal Grandmother No problems noted. Maternal Grandfather , Age 40 No problems noted. 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, [employer] Pets and animals: Yes (2) Pets and animals: cat(s) Current gender identity: female How often do you talk on the phone with friends or family?: three or more times per week How often do you get together with friends or relatives?: twice per week How often do you attend mormonism or episcopal services?: 4 or more times per year Do you belong to any clubs or organized social groups?: yes Panel score (0-1 are the most socially isolated patients): 3 What type of physical activity do you participate in: none and walking Duration: < 15 minutes/day Jennifer/Protestant: Unitarian Universalist Seatbelt use: always Drive intox or ride w/intox lumber 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: No Working smoke detector in home: Yes Fire extinguisher in home: Yes Carbon monox detector in home: Yes Firearms in home: No Do you feel safe at home: Yes Do you feel safe in your relationship?: Yes Meds Allergies and Home Medications Allergies Allergy/AdvReac Type Severity Reaction Status Date / Time No Known Allergies Allergy Verified 12/22/20 22:12 Home Medications Medication Instructions Recorded Confirmed Type cholecalciferol (vitamin D3) 50 2,000 unit PO DAILY 11/02/17 12/22/20 History mcg (2,000 unit) tablet hjprgzup-zar-zzsi-FA-Ca carb-vit K 1 tab PO DAILY 11/02/17 12/22/20 History 18 mg iron-400 mcg-500 mg tablet calcium carbonate-vitamin D3 600 cap PO BID cap 06/12/18 12/10/20 History mg calcium-200 unit capsule botox 60 unit IJ .q3 months 08/19/20 12/10/20 History alendronate 70 mg tablet 70 mg PO QWEEK #12 tab 09/25/20 12/22/20 Rx apixaban 5 mg tablet 5 mg PO BID 12/10/20 12/22/20 History zinc acetate 25 mg (zinc) capsule 25 mg PO DAILY PRN 12/10/20 12/22/20 History metoprolol succinate 25 mg 25 mg PO DAILY #30 tab 12/16/20 12/22/20 Rx tablet,extended release 24 hr diltiazem HCl 360 mg PO DAILY 12/22/20 12/22/20 History Exam Narrative Exam Narrative: 120/80, 130-140 on monitor; 35.7, 18, 99% RA. HEENT atraumatic; neck supple; lungs clear; heart tachy with periods of regular interspersed with irregular; abdopmen soft and NT' extremities w/o edema; neuro Ox3, lucid, nonfocal Results Labs Result diagrams: 12/22/20 22:20 12/22/20 22:55 Labs: Laboratory Results - last 24 hr 12/22/20 12/22/20 12/22/20 22:20 22:55 23:05 WBC 8.80 RBC 5.47 H Hgb 16.8 H Hct 49.5 H MCV 90.5 MCH 30.7 MCHC 33.9 RDW 11.9 Plt Count 217 MPV 11.9 H Immature Gran % 0.1 Neutrophils % 47.3 Lymphocytes % 42.6 Monocytes % 8.4 Eosinophils % 1.1 Basophils % 0.5 Nucleated RBC % 0 Absolute Neutrophils 4.16 Absolute Lymphocytes 3.75 H Absolute Monocytes 0.74 Absolute Eosinophils 0.10 Absolute Basophils 0.04 Sodium 145 Potassium 4.3 Chloride 108 H Carbon Dioxide 30.6 Anion Gap 6.4 BUN 15 Creatinine 0.8 Estimated GFR/1.73 m2 >= 60.00 Glucose 98 Calcium 9.0 Magnesium 2.1 Total Bilirubin 0.5 AST 14 L ALT 38 Alkaline Phosphatase 63 Troponin I < 0.05 Total Protein 6.6 Albumin 3.6 COVID-19 Source Nasal/Nares Last Vital Signs Pulse 128 H 12/22/20 22:44 Resp 18 12/22/20 22:07 BP 120/80 12/22/20 22:39 Pulse Ox 99 12/22/20 22:07
[2020-12-22 23:45] LABS: TSH (W/Ref FT4) 4.15 uIU/mL (0.36-3.74)
[2020-12-23] VITALS (168 sets, daily range): BP systolic 73–122; BP diastolic 44–83; PULSE 47–148; RESP 0–30; TEMP 35.8–37.1; O2SAT 89–98
[2020-12-23] MEDS: Verapamil 5 MG/2 ML VIAL 2.5 MG IVP
--- NOTE | 2020-12-23 | DI.US_ITS ---
APPROVED REPORT EXAM: Comprehensive 2D, Doppler, and color-flow Echocardiogram Patient Location: In-Patient Room/Bed: [id number] Chief Digital Media Officer: Tonia De La Rosa RDCS (AE) Indications: Chest pain, A Fib Other Information Study Quality: Adequate Conclusion Normal left ventricular wall thickness and chamber size. Estimated ejection fraction is 60%. Wall m otion is normal Normal right ventricular size and systolic function Both atria are normal in size Trileaflet aortic valve without stenosis or regurgitation Normal tricuspid valve with trace to mild regurgitation. Estimated right ventricular systolic pressu re is normal, 20 mmHg Normal mitral valve with mild regurgitation Wall motion Left Ventricle The left ventricle is normal size. The left ventricular systolic function is normal. The left ventric ular ejection fraction is within the normal range. There is normal left ventricular wall thickness. T here is normal LV segmental wall motion. There is no ventricular septal defect visualized. LVEF is 60 %. Right Ventricle Right ventricle is grossly normal in size. Right ventricular systolic function is grossly normal. The RVSP is 20.5mmHg. Atria The left atrium size is normal. The right atrium size is normal. The interatrial septum is intact wit h no evidence for an atrial septal defect. Aortic Valve The aortic valve is normal in structure. Aortic valve is trileaflet. There is no aortic valvular sten osis. No aortic regurgitation is present. Mitral Valve The mitral valve is normal in structure. No evidence of mitral valve stenosis. Mild mitral regurgitat ion. Tricuspid Valve The tricuspid valve is normal in structure. There is no tricuspid valve stenosis. Trace to mild tricu spid regurgitation. Pulmonic Valve The pulmonary valve is normal in structure. There is no pulmonic valvular stenosis. There is no pulmo peam valvular regurgitation. Great Vessels The aortic root is normal in size. The ascending aorta is mildly dilated. Aortic arch is normal in ca liber. IVC is normal in size and collapses >50% with inspiration. Pericardium There is no pericardial effusion. 2D Dimensions IVSD d PLAX 0.72 cm F: 0.6-1.0 LV Vol A2C d MOD 85.8 mL LVPW d PLAX 0.73 cm F: 0.6 - 1.0 LV Vol A4C d MOD 83.0 mL LVID d PLAX 4.44 cm F: 3.8 - 5.2 LA vol/ BSA A2C s A-L 37.1 mL/m2 LVDs 3.15 cm F: 2.2 - 3.5 LA vol/ BSA A4C s A-L 41.1 mL/m2 Ao Root d 2.94 cm F: 2.7 - 3.3 LA Vol/ BSA Biplane s A-L 41.6 mL/m2 RA Area A4C 14.74 cm2 LA Area A4C s MOD 23.38 cm2 RA Vol/ BSA A4C s A-L 21.0 mL/m2 LA Area A2C s MOD 20.87 cm2 Ao Asc Diam d 3.49 cm F: 2.3 - 3.1 LV EF A4C MOD 58.1 % LV EF Teichholz 55.6 % LV EF A2C MOD 57.8 % LVEF (Gonsalez's) 57.96 % F: 54 - 74 LV EF Biplane MOD 58.0 % LV Volume 65.95 mL F: 46 - 106 SV 49.41 mL LV Volume Index 36.23 mL/m2 F: 29 - 61 SV Index 27.03 mL/m2 LV Vol Biplane MOD 85.2 mL FS 28.75 % M-Mode TAPSE 1.83 cm (M/F) >1.7 LV Diastology MV E' medial 0.127 (>0.07 m/s) E/A Ratio 2.2 LV E/e MED 6.75 (<14) MV E Vmax 0.86 (0.4-1.3 m/s) MV E' lateral 0.110 (>0.1 m/s) MV A Vmax 0.40 (0.4-1.3 m/s) LV E/e LAT 7.80 (<14) MV E/A Ratio 2.07 MV E/E' medial 6.78 MV E/E' lateral 7.83 Aortic Valve LVOT Area 2.86 cm2 AoV Area Vmax 2.33 cm2 LVOT Vmax 0.80 m/s AoV Area/ BSA (Vmax) 1.27 cm2/m2 LVOT Mean Robbie. 0.57 m/s STEFANY Mean Robbie. 1.97 cm2 LVOT Peak Grad 2.5 mmHg STEFANY Mean Robbie. Index 1.08 cm2/m2 LVOT Mean Grad 1.5 mmHg LVOT VTI 0.176 m LVOT Diam s 1.90 cm AoV Vmax 0.98 m/s Velocity Ratio 0.81 AoV Mean Rbobie. 0.83 m/s AoV Peak Grad 3.8 mmHg LVOT SV 50.29 mL AoV Mean Grad 2.9 mmHg AoV VTI 0.217 m AoV Area VTI 2.32 cm2 AoV Area/ BSA (VTI) 1.27 cm/m2 Mitral Valve MV DT 120 (160-240 msec) MR Vmax 3.45 m/s MV PHT 35 msec MR VTI 1.266 m MV Area PHT 6.31 cm2 MR Peak Grad 47.7 mmHg MV VTI 0.243 m MR Mean Grad 38.2 mmHg MV Area VTI 2.07 (4.0-6.0 cm2) Pulmonary Valve PV Vmax 0.52 (0.5-1.5 m/s) RVOT Peak Gr. 0.59 mmHg PV Peak Grad 1.1 mmHg RVOT Mean Gr. 0.35 mmHg PV Mean Grad 0.6 mmHg RVOT VTI 0.077 m PV VTI 0.086 m RVOT Vmax 0.38 m/s Tricuspid Valve TR Peak Grad 17.4 mmHg TR Vmax 2.09 m/s RA Pressure 3.00 mmHg RVSP (TR) 20.5 mmHg
[2020-12-23] MEDS: Normal Saline 500 ML 999 ML IV (00:25)
[2020-12-23] MEDS: Normal Saline 1,000 ML 100 ML IV (01:55)
[2020-12-23] MEDS: Normal Saline Flush 10 ML SYR IVP ×2 (01:55→09:37)
[2020-12-23 08:54] LABS: COVID-19 PCR Negative (Negative)
[2020-12-23] MEDS: Verapamil 5 MG/2 ML VIAL IVP (09:03)
--- NOTE | 2020-12-23 09:09 | PGE_ITS ---
Date of Service Date of service: 12/23/20 Time of Service: 09:10 Assessment and Plan Assessment and plan (1) Atrial flutter: Status: Acute Assessment and plan: Patient has ruled out for an acute cardiac ischemic event. Her TSH is mildly elevated which would suggest possible occult hypothyroidism rather than hyperthyroidism. Free T4 is pending at this time. Patient needs titration of her beta-antonia as well as her calcium channel antonia. Her heart rate seem to respond much better to verapamil than what she was responding to diltiazem. 5 mg of verapamil brought her heart rate down into the 70s with a 4-1 AV conduction. I will resume metoprolol but put her on Lopressor immediate acting and titrate the dose. She will be put on immediate acting verapamil with titration of the dose. Continue anticoagulation. Check echocardiogram. Consult with Anna Alvarado, cafe server with whom I spoke with. Plan for outpatient polysomnogram to evaluate for sleep apnea. Time spent with the patient reviewing her chart and examining her and taking a history as well as consulting with the cafe server 1 hour. Qualifiers: Atrial flutter type: typical Qualified Code(s): I48.3 - Typical atrial flutter Subjective Subjective Interval history since last seen: 70-year-old female with history of paroxysmal atrial fibrillation previously controlled with low-dose Toprol-XL 25 mg daily along with Cardizem CD 240 mg daily (although according to her clinic note she was supposed to be taking Cardizem CD 120 twice a day rather than all at once) and recently anticoagulated with Eliquis starting about 2 weeks ago ([id number] of 2). Patient previously was followed by Dr. Flores in [place] although her A. fib is now being managed by her primary care provider Dr. Adalgisa Cho. Previously her atrial fibrillation episodes were episodic and she would go months to years in between episodes but of more recent she has been having frequent palpitations. She was seen in the clinic by Dr. Jairo Decker on December 11, 2020. At that time he recommended that she go back to taking twice a day dosing of her diltiazem 120 mg twice daily. He he indicated that the summer joyner was monitored on rate and rhythm with a non-FDA approved device to connect to her smart phone. And according to her readings she been having episodes of heart rates in the 150s in which she experienced palpitations. Prior to that she had presented emergency department on December 10, 2020 with atrial fibrillation with rapid rate in the 150s. EKG showed no LA and troponins were negative. Her rate settled down into the 80s and after the ER had a discussion with [facility] was recommended that she take 240 mg of diltiazem CD in the morning. But as I noted when she saw Dr. Decker he put her back on twice a day dosing. Arrangements were made for her to follow-up with Dr. Anna Alvarado in the cardiology clinic at [facility]. In the interim she presented emergency department last night with symptoms that began around 7:30 PM in which she felt palpitations and chest discomfort not as much pain but more palpitations. This is associate with lightheadedness. On arrival to emergency department she was noted to be in what appeared to be atrial flutter at a rate of 139 bpm she was given Cardizem 10 mg IV. Heart rate continued in the 130s her systolic blood pressure dropped to 107 she was given IV fluid bolus. Her chemistry panel was unremarkable. She had no electrolyte abnormalities she had normal kidney and liver function. Serial troponins were obtained last night and the first 2 sets were negative at less than 0.05. CBC suggested some hemoconcentration with hemoglobin 16.8 g no leukocytosis. TSH was slightly elevated at 4.15 and free T4 is pending at this time. Chest x-ray showed clear lung johnson and normal cardiac size. No mediastinal widening. Patient was evaluated by Dr. Kohler in the emergency department and she was given 2.5 mg verapamil which helped control her heart rate and she was started on verapamil 80 mg orally. No further doses of verapamil were ordered. Her Toprol-XL 25 mg was ordered for this morning although she usually takes this at night. She was put back on her Eliquis 5 mg twice daily. No echocardiogram has been ordered and no cardiology consult has been ordered. After the oral verapamil was given her heart rate improved and she was found to be in a 41 atrial flutter interventricular rate was in the 60s and 70s until around 820 this morning when she went back into a rapid atrial fibrillation/flutter at a rate of 148 bpm. Review of her cardiac history she had a remote history of an echocardiogram and a stress test but has been several years now and was performed by Dr. Flores. She has not had a work-up for sleep apnea. However she does indicate that has been suggested that she should have one. I asked her about symptoms of ischemia when she is not in afib/flutter. While she is active her physical activity has been hampered by her severe blepharospasms and eyelid apraxia for which she follows / [facility] [place]. She has M.S. which is in remission and she formerly was on copaxone. She says that with activity she has always felt like she could not get a deep enough breath but no chest tightness. This feeling has been present since her college days. 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 Exam Narrative Exam Narrative: Pleasant white female who is lying in bed semifowler position alert and oriented person place time circumstance. In spite of a rapid heart rate she is not dizzy or lightheaded. Blood pressure is borderline with systolic pressure in the mid 90s. HEENT is unremarkable. Neck is supple no JVD no thyromegaly no adenopathy, no carotid bruits, carotid pulses irregular regular tachycardic Lungs are clear to auscultation Heart is irregularly irregular and tachycardic without appreciable murmur rub Abdomen soft nondistended nontender normal bowel sounds no bruits Lower extremities without peripheral cyanosis or edema normal pedal pulses Objective Last Vital Signs Temp 37.0 C 12/23/20 08:36 Pulse 148 H 12/23/20 09:03 Resp 18 12/22/20 22:07 BP 94/69 L 12/23/20 09:03 Pulse Ox 99 12/22/20 22:07 Laboratory Results - last 24 hr 12/22/20 12/22/20 12/22/20 22:20 22:55 22:55 WBC 8.80 RBC 5.47 H Hgb 16.8 H Hct 49.5 H MCV 90.5 MCH 30.7 MCHC 33.9 RDW 11.9 Plt Count 217 MPV 11.9 H Immature Gran % 0.1 Neutrophils % 47.3 Lymphocytes % 42.6 Monocytes % 8.4 Eosinophils % 1.1 Basophils % 0.5 Nucleated RBC % 0 Absolute Neutrophils 4.16 Absolute Lymphocytes 3.75 H Absolute Monocytes 0.74 Absolute Eosinophils 0.10 Absolute Basophils 0.04 Sodium 145 Potassium 4.3 Chloride 108 H Carbon Dioxide 30.6 Anion Gap 6.4 BUN 15 Creatinine 0.8 Estimated GFR/1.73 m2 >= 60.00 Glucose 98 Calcium 9.0 Magnesium 2.1 Total Bilirubin 0.5 AST 14 L ALT 38 Alkaline Phosphatase 63 Troponin I < 0.05 Total Protein 6.6 Albumin 3.6 TSH 4.15 H COVID-19 Source 12/22/20 23:05 WBC RBC Hgb Hct MCV MCH MCHC RDW Plt Count MPV Immature Gran % Neutrophils % Lymphocytes % Monocytes % Eosinophils % Basophils % Nucleated RBC % Absolute Neutrophils Absolute Lymphocytes Absolute Monocytes Absolute Eosinophils Absolute Basophils Sodium Potassium Chloride Carbon Dioxide Anion Gap BUN Creatinine Estimated GFR/1.73 m2 Glucose Calcium Magnesium Total Bilirubin AST ALT Alkaline Phosphatase Troponin I Total Protein Albumin TSH COVID-19 Source Nasal/Nares
--- NOTE | 2020-12-23 09:14 | W.CARDCONSUL ---
Date of service: 12/23/20 Time of Service: 09:14 History of Present Illness History of Present Illness Chief Complaint: Atrial fibrillation Narrative: This 70-year-old woman presented to the hospital with atrial fibrillation, uncontrolled rate. She reportedly has a history of paroxysmal atrial fibrillation. She was recently in [facility] and presented to emergency room there on December 08. At that time she was started on Eliquis 5 mg twice daily for anticoagulation and also diltiazem 240 mg daily. Since returning to [place] she has had at least one emergency room visit for rapid atrial fibrillation and her diltiazem has been increased up to a dose of 360 mg daily. She also reportedly was prescribed metoprolol succinate 25 mg daily Patient came to the ER yesterday, again with atrial fibrillation at an uncontrolled rate. Overnight she was treated with doses of intravenous diltiazem and then intravenous verapamil. Her heart rate becomes controlled, then increases when the previously administered medication has worn off. Case was discussed in detail with Dr. Harrell. We reviewed that the medications used for rate control generally include beta-blockers, diltiazem, or verapamil. Overall verapamil has a bit more Av rene blocking ability. It would be reasonable to start oral verapamil, likely requiring at least a moderate dose, instead of diltiazem. Her beta-antonia could be adjusted and titrated upwards as able. Use of these medications of course is impacted by the patient's blood pressure, which can limit their use An echocardiogram would be of interest to ensure that left iventricular systolic function is normal, and to evaluate atrial size She should be continued on Eliquis for stroke prevention Patient was not interviewed or examined. Please do not hesitate to contact me if additional questions in her management arise while she is hospitalized Consults Consult date: 12/23/20 Requesting physician: Shiraz Harrell [facility] Active Problem List Atrial fibrillation (Chronic) Functional disorder of intestine (Acute) Large breasts (Acute) Paroxysmal A-fib (Acute) Functional belching disorder (Acute) Globus sensation (Acute) Blepharospasm (Acute) Hiatal hernia (Chronic) Cholelithiasis (Chronic) Vitamin D deficiency (Chronic) Hyperlipidemia (Chronic) Anxiety (Chronic) Depression (Chronic) Osteoporosis (Chronic 01/18/17) Multiple sclerosis (Chronic) Medical History Cardiac arrhythmia Afib and pVc History of lumbar puncture Optic neuritis Surgical History Ankle fracture, left s/p ORIF 2000 or 2004 Ankle fracture, right s/p ORIF 2000 or 2004 History of appendectomy 1967 History of colposcopy with cervical biopsy Family History Mother Hypertension Alzheimer disease Father Migraine FH: mental illness Paternal Grandfather Stomach cancer Paternal Grandmother No problems noted. Maternal Grandfather , Age 40 No problems noted. 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 [employer] Pets and animals: Yes (2) Pets and animals: cat(s) Current gender identity: female How often do you talk on the phone with friends or family?: three or more times per week How often do you get together with friends or relatives?: twice per week How often do you attend buddhism or advent services?: 4 or more times per year Do you belong to any clubs or organized social groups?: yes Panel score (0-1 are the most socially isolated patients): 3 What type of physical activity do you participate in: none and walking Duration: < 15 minutes/day Jennifer/Gnosticism: Unitarian Universalist Seatbelt use: always Drive intox or ride w/intox snaker tractor driver: No Working smoke detector in home: Yes Fire extinguisher in home: Yes Carbon monox detector in home: Yes Firearms in home: No Do you feel safe at home: Yes Do you feel safe in your relationship?: Yes Results Last Vital Signs Temp 37.0 C 12/23/20 08:36 Pulse 148 H 12/23/20 09:03 Resp 18 12/22/20 22:07 BP 94/69 L 12/23/20 09:03 Pulse Ox 99 12/22/20 22:07 Labs Result diagrams: 12/22/20 22:20 12/22/20 22:55 Labs: Laboratory Results - last 24 hr 12/22/20 12/22/20 12/22/20 22:20 22:55 22:55 WBC 8.80 RBC 5.47 H Hgb 16.8 H Hct 49.5 H MCV 90.5 MCH 30.7 MCHC 33.9 RDW 11.9 Plt Count 217 MPV 11.9 H Immature Gran % 0.1 Neutrophils % 47.3 Lymphocytes % 42.6 Monocytes % 8.4 Eosinophils % 1.1 Basophils % 0.5 Nucleated RBC % 0 Absolute Neutrophils 4.16 Absolute Lymphocytes 3.75 H Absolute Monocytes 0.74 Absolute Eosinophils 0.10 Absolute Basophils 0.04 Sodium 145 Potassium 4.3 Chloride 108 H Carbon Dioxide 30.6 Anion Gap 6.4 BUN 15 Creatinine 0.8 Estimated GFR/1.73 m2 >= 60.00 Glucose 98 Calcium 9.0 Magnesium 2.1 Total Bilirubin 0.5 AST 14 L ALT 38 Alkaline Phosphatase 63 Troponin I < 0.05 Total Protein 6.6 Albumin 3.6 TSH 4.15 H COVID-19 Source 12/22/20 23:05 WBC RBC Hgb Hct MCV MCH MCHC RDW Plt Count MPV Immature Gran % Neutrophils % Lymphocytes % Monocytes % Eosinophils % Basophils % Nucleated RBC % Absolute Neutrophils Absolute Lymphocytes Absolute Monocytes Absolute Eosinophils Absolute Basophils Sodium Potassium Chloride Carbon Dioxide Anion Gap BUN Creatinine Estimated GFR/1.73 m2 Glucose Calcium Magnesium Total Bilirubin AST ALT Alkaline Phosphatase Troponin I Total Protein Albumin TSH COVID-19 Source Nasal/Nares
[2020-12-23] MEDS: Apixaban 5 MG TAB PO ×2 (09:36→21:02)
--- NOTE | 2020-12-23 09:41 | INITIAL_ITS ---
- If Service Date Differs Date of service: 12/23/20 Time of Service: 09:42 Care Management Initial Assess REASON FOR HOSPITALIZATION:: Afib-flutter. PAST MEDICAL HISTORY/PAST SURGICAL HISTORY:: Medical History: Atrial fibrillation (Chronic), Functional disorder of intestine (Acute), Paroxysmal A- fib (Acute), Functional belching disorder (Acute), Globus sensation (Acute), Blepharospasm (Acute), Hiatal hernia (Chronic), Cholelithiasis (Chronic), Vitamin D deficiency (Chronic), Hyperlipidemia (Chronic), Anxiety (Chronic), Depression (Chronic), Osteoporosis (Chronic 01/18/17), Multiple sclerosis (Chronic), Cardiac arrhythmia - Afib and pVc , History of lumbar puncture, and. Optic neuritis. Surgical History: Ankle fracture, left - s/p ORIF 2000 or 2004, Ankle fracture, right - s/p ORIF 2000 or 2004, History of appendectomy - 1966, and History of colposcopy with cervical biopsy. PREVIOUS FUNCTIONAL STATUS/SOCIAL/FAMILY SUPPORTS:: Elissa lives alone in an apartment at the [facility] in [facility]. 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 Elissa no longer drives but is independent with her ADLs. CURRENT FUNCTIONAL STATUS:: Elissa is sitting up in bed when CM comes to meet with her. She is pleasant and easily engages in conversation. She talks about her irregular heart rate and having to come to the hospital. She is hopeful the new medication she was started on will be effective in regulating her heart r ate. Elissa hopes to be returning home tomorrow. ADVANCE DIRECTIVES:: On file; Dewayne Jaime (sister) is appointed as Health Care Agent. Has patient been provided with info about the portal/API?: Yes Did the patient sign up for the portal?: Yes (Previously enrolled.) CODE STATUS:: Full Code INSURANCE COVERAGE / FINANCIAL ISSUES:: BCBS and Medicare. CURRENT HOME/COMMUNITY SERVICES/EQUIPMENT:: None. PRIMARY CARE PHYSICIAN:: Adalgisa Cho MD. POTENTIAL DISCHARGE NEEDS:: Follow up appointments with PCP and mechatronics technologist. PATIENT/FAMILY EDUCATION NEEDS:: Review of discharge instructions, limitations and follow up plan of care, including Ask Me Three and self management. ANTICIPATED BARRIERS TO DISCHARGE:: No anticipated barriers at this time. TRANSPORTATION:: Via private vehicle with friends vs taxi. PLAN:: Elissa will likely be discharged home with no new services when medically cleared by MD. She will follow up with her PCP, mechatronics technologist, and discharge plan of care as directed. Elissa will be driven home by friends in a private vehicle vs. a taxi. CM will continue to follow.
[2020-12-23] MEDS: Normal Saline 1,000 ML 125 ML IV ×2 (10:06→18:13)
[2020-12-23] MEDS: Verapamil 80 MG TAB 40 MG PO ×3 (10:47→21:03)
[2020-12-23 11:22] LABS: FREE T4 1.12 ng/dL (0.76-1.46)
[2020-12-23] MEDS: Metoprolol 25 MG TAB PO ×2 (12:20→18:15)
[2020-12-23 12:30] LABS: Troponin I < 0.05 ng/mL (<0.06)
[2020-12-23] MEDS: Melatonin 3 MG TAB PO (21:02)
[2020-12-24] VITALS (82 sets, daily range): BP systolic 90–114; BP diastolic 58–73; PULSE 83–124; RESP 9–29; TEMP 36.3–37.1; O2SAT 94–100
[2020-12-24] MEDS: Metoprolol 25 MG TAB PO ×2 (01:15→06:25)
[2020-12-24] MEDS: Normal Saline 1,000 ML 125 ML IV (01:15)
[2020-12-24] MEDS: Verapamil 80 MG TAB 40 MG PO (08:15)
[2020-12-24] MEDS: Apixaban 5 MG TAB PO ×2 (08:16→20:45)
--- NOTE | 2020-12-24 08:32 | CMPROGNOTE_ITS ---
- If Service Date Differs Date of service: 12/24/20 Time of Service: 08:32 Care Management Progress Note S/O: Elissa was sitting in her chair when CM met with her. She was pleasant and easily engaged in conversation. 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 Elissa is anticipating being discharged home tomorrow if she is medically ready. She lives alone but shares that she has a large network of friends that help her out when she is home. A: 70 year old female admitted to [facility] ICU on 12/22/2020 for A-Fib, Acute Atrial Flutter. P: Elissa will likely be discharged home with no new services when medically cleared by MD. She will follow up with her PCP, medical transcription radiology, and discharge plan of care as directed. Elissa will be driven home by friends in a private vehicle. CM will continue to follow.
--- NOTE | 2020-12-24 08:49 | W.PM.PROGNOT ---
Date of Service Date of service: 12/24/20 Time of Service: 08:49 Assessment and Plan Assessment and plan (1) Paroxysmal A-fib: Status: Acute Assessment and plan: Patient goes back for to atrial fibrillation atrial flutter. Rate is less than optimally controlled at rest. Goal is to have resting heart rates below 90 and heart rates with activity below 120. I will switch her to a long-acting verapamil. Patient's metoprolol was just recently added by her primary care provider in addition to titration of her diltiazem. I am going to try her on bisoprolol instead of Lopressor. This afternoon she will receive bisoprolol 5 mg and this evening she will get a dose of Calan SR 120 mg at suppertime and then tomorrow morning she will start long-acting verapamil 240 mg daily. She no longer meets for requirements for ICU care as she is no longer receiving IV calcium channel blockers or IV beta-blockers. I will transfer her to the medical/surgical floor on telemetry. I have increased her activity so we can monitor her heart rate and rhythm with physical activity. She remains on apixaban for anticoagulation. (2) Atrial flutter: Status: Acute Assessment and plan: As above Qualifiers: Atrial flutter type: typical Qualified Code(s): I48.3 - Typical atrial flutter Subjective Subjective Interval history since last seen: Patient still having some feelings of lightheadedness seems to be worse when she is lying in bed than when she is standing. She remains in atrial fibrillation w/ resting HR in the low 100's but rises to the 120's w/ activity. No CP. Exam Narrative Exam Narrative: Alert and oriented x3 Lungs are clear to auscultation Heart is irregularly irregular slightly tachycardic with no murmur I performed orthostatic manual blood pressures. With sitting blood pressure is 94/68 w/ HR 100, standing BP 98/70 HR low 100's Objective Last Vital Signs Temp 36.9 C 12/24/20 01:15 Pulse 115 H 12/24/20 03:15 Resp 9 L 12/24/20 05:10 BP 102/64 12/24/20 01:20 Pulse Ox 94 12/24/20 01:15 Laboratory Results - last 24 hr 12/22/20 12/22/20 12/23/20 22:55 23:05 01:17 Troponin I < 0.05 Free T4 1.12 SARS-CoV-2 (PCR) Negative
--- NOTE | 2020-12-24 10:41 | W.NUTRFU ---
Date of service: 12/24/20 Time of Service: 10:41 Nutrition Note NOTE: Ms. Truong has excellent PO intake on a regular diet. Her BMI is 25.8 kg/m2 which is WNL for her age. No nutritional issues noted at this time but will continue to follow her nutritional status. Time Spent in Nutritional Counseling and Treatment: 0
--- NOTE | 2020-12-24 11:44 | CHAPLAIN ---
Elissa was sitting up at the edge of her bed when I visited. She told me about the cardiac issues that brought her to the ED yesterday. Elissa lives alone but says she has some friends she can call for support and rides in situations like this. 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 Natalie Macdonald. I left a message for Natalie. 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
[2020-12-24] MEDS: Bisoprolol 5 MG TAB PO (12:53)
[2020-12-25 00:54] VITALS: PULSE 78
[2020-12-25 03:30] VITALS: BP 103/69; PULSE 86; RESP 14; TEMP 36.9; O2SAT 95
[2020-12-25 07:00] VITALS: PULSE 105
[2020-12-25 07:35] VITALS: BP 110/60; PULSE 110; RESP 16; TEMP 36.8; O2SAT 96
[2020-12-25] MEDS: Bisoprolol 5 MG TAB PO (07:41)
[2020-12-25] MEDS: Normal Saline Flush 10 ML SYR IVP (07:41)
[2020-12-25] MEDS: Apixaban 5 MG TAB PO (07:41)
--- NOTE | 2020-12-25 11:15 | RT.EKG_ITS ---
APPROVED REPORT Exam: Resting ECG Reason for Exam: afib Patient Location: I HR:65 bpm ECG Measurements Heart Rate 65 AXIS DC [id number] P [id number] QRSd 84 QRS 95 QT 377 T 10 QTc 392 Conclusion Atrial fibrillation...V-rate 50- 84, irreg A-activity Right axis deviation...QRS axis ( 91,269) Low voltage, precordial leads...precordial leads <1.0mV
[2020-12-25 11:44] VITALS: BP 90/59; PULSE 72; RESP 12; TEMP 36.5; O2SAT 95
--- NOTE | 2020-12-25 12:04 | DSE_ITS ---
Date of service: 12/25/20 Time of Service: 12:04 DS: Diagnosis Discharge Diagnosis (1) Paroxysmal A-fib: Status: Acute (2) Atrial flutter: Status: Acute Discharge Plan Disposition Patient Disposition: HOME Condition: Improving Discharge Details Reason For Visit: Afib-Flutter Admit Date/Time: 12/24/20 16:12 Admit Provider: Emerson Kohler Attending Provider: Emerson Kohler Primary Care Provider: Adalgisa Cho Hospital Course Hospital Course: Elissa Truong is a 70-year-old female with history of paroxysmal atrial fibrillation controlled with Cardizem CD 240 mg daily with recent addition of Toprol-XL 25 mg daily. She was recently started on anticoagulation with apixaban. She previously was followed by Dr. Flores at [facility] for her paroxysmal atrial fibrillation which used to be rarely occurring and very episodic. Patient had been reluctant to go on anticoagulation until recently when her episodes became more frequent. She was admitted to the hospital through the emergency department with exacerbation of her atrial flutter/atrial fibrillation she was treated emergency department with Cardizem 10 mg IV push but this did not control her rapid rate and therefore she was then given verapamil 2.5 mg IV and started on verapamil 80 mg orally. This controlled her rate it became apparent that she was in atrial flutter at 41 AV conduction. Heart rate remained controlled in the 60s to 70s until around 820 in the morning on the following morning of her admission when she went into rapid atrial fibrillation/flutter at a rate of 148 bpm. She was then given additional 5 mg verapamil IV which brought her heart rate down in the 70s with an AV conduction of 41. I then put her on oral doses of verapamil 40 mg every 8 hours and Lopressor 25 mg every 6 hours. However this did not control her heart rate and I subsequently switch her to bisoprolol 5 mg and increased her verapamil dose to 80 mg TID and then she was converted to Calan SR. On the night prior to discharge she was given Calan SR 120 mg at supper and she received bisoprolol 5 mg on that afternoon. On the day of discharge she was started on verapamil SR 240 mg daily along with bisoprolol 5 mg daily. She was kept on her Eliquis 5 mg twice daily for anticoagulation. Her monitored heart rate was in the 90s at rest and with activity would go up into the low 100s to 110s but came down quickly with rest. She was relatively asymptomatic from it. She was discharged home with a 48-hour Holter monitor and was set up for an outpatient follow-up with cardiology with Dr. Anna Alvarado as well as the patient's primary care provider Dr. Adalgisa Cho. Her hospital work-up included a chest x- ray and an echocardiogram as well as routine labs. Chest x-ray showed the heart to be upper limits of normal lungs were clear with no infiltrates or effusions. There is no mediastinal widening. Echocardiogram showed normal left ventricular size and function with an ejection fraction of 60% with no wall motion abnormalities. Right ventricular size and function was normal. Patient had no significant valvular abnormalities. Pulmonary pressures were normal at 20.Diagnostic lab work include a CBC that showed a normal white count of 8800 with mild polycythemia with a hemoglobin 16.8 g hematocrit 49%. CMP was within normal limits. TSH was slightly increased at 4.15 but with a normal free T4 of 1.12. Serial troponins were normal at less than 0.05. Home Meds and New Rx's Prescriptions: New bisoprolol fumarate 5 mg Tablet 5 mg PO DAILY Qty: 30 RF: 1 verapamil [Calan SR] 120 mg Tablet Extended Release 240 mg PO DAILY Qty: 30 RF: 1 Continued cholecalciferol (vitamin D3) 2,000 unit tablet 2,000 unit PO DAILY RF: 0 Women's Multivitamin 18 mg iron-400 mcg-500 mg tablet 1 tab PO DAILY RF: 0 alendronate [Fosamax] 70 mg tablet 70 mg PO QWEEK Qty: 12 RF: 3 zinc acetate 25 mg (zinc) capsule 25 mg PO DAILY PRNRF: 0 Calcium 600 + D(3) 600 mg calcium- 200 unit capsule PO BID RF: 0 Eliquis 5 mg tablet 5 mg PO BID Qty: 60 RF: 1 Discontinued metoprolol succinate 25 mg tablet extended release 24 hr 25 mg PO DAILY Qty: 30 RF: 0 diltiazem HCl 360 mg Capsule,Extended Release 24hr 360 mg PO DAILY RF: 0 No Action botox 60 unit IJ .q3 months RF: 0 Discharge Instructions Instructions: Verapamil (By mouth), Bisoprolol (By mouth), Atrial Flutter (DC) Stand Alone Forms: Nursing Discharge Form Referrals: Anna Alvarado MD [ [facility] STAFF PHYSICIAN] - 01/09/21 9:00 am Adalgisa Cho MD [Primary Care Provider] - 12/31/20 11:45 am Activity:: Activity as Tolerated Equipment/Supplies:: No Equipment Needed Diet:: Normal Diet Discharge Orders Discharge Orders: Discharge Order (Routine); Ordered 12/25/20 Ordered By: Shiraz Harrell Other Ambulatory Orders: Holter Monitor (Routine) Timeframe: 3 Days Facility: [facility] - Location: Respiratory Therapy Ordered By: Shiraz Harrell Discharge Data Discharge Date/Time-TO BE ENTERED AT DEPARTURE: 12/25/20 14:50 DS: Summary Time Spent with Patient providing and/or coordinating discharge services: Less than 30 minutes Status at Discharge Functional status at discharge: independent ambulation Overall status at discharge: patient is progressing back to baseline Mental Status: mental status grossly normal Speech and Movement: speech and movement normal Mood: congruent mood Affect: normal affect Exam Narrative Exam Narrative: Alert and oriented x3 Lungs are clear to auscultation Heart is irregularly irregular at controlled rate with no murmur Abdomen: soft, nontender Psych Mental Status: mental status grossly normal Speech and Movement: speech and movement normal Mood: congruent mood Affect: normal affect DS: Data Vitals/I&O Vitals and I&O: Vital Signs Temperature 36.5 C 12/25/20 11:44 Temperature Source Tympanic 12/25/20 11:44 Pulse 72 12/25/20 11:44 Pulse Rhythm Irregular 12/25/20 07:53 Pulse 108 H 12/24/20 14:10 Respiratory Rate 12 12/25/20 11:44 Respiratory Effort 12/25/20 07:53 Respiratory Depth Normal 12/25/20 07:53 Respiratory Pattern Normal 12/25/20 07:53 Blood Pressure 90/59 L 12/25/20 11:44 Blood Pressure Mean 68 12/24/20 08:16 Blood Pressure Position Supine 12/24/20 08:00 Pulse Oximetry 95 12/25/20 11:44 Oxygen Delivery Method Room Air 12/25/20 11:44 Oxygen Flow Rate 0 12/25/20 11:44 Pain Level 0 12/25/20 11:44 Comment 12/23/20 09:30 Intake & Output 12/24/20 12/25/20 12/25/20 23:59 11:59 23:59 Intake Total 240 / 1119.167 Output Total 900 / 2300 Balance -660 / -1180.833 Weight 73 kg Intake: Oral 240 / 240 Output: Urine 900 / 2300 Other: Urine Color Yellow Urine Appearance Clear Clear Comment per pt, voided in bathroom x1 Stool Characteristics Soft Formed Voiding Methods Toilet Toilet [facility] Active Problem List Atrial flutter (Acute) Atrial fibrillation (Chronic) Functional disorder of intestine (Acute) Large breasts (Acute) Paroxysmal A-fib (Acute) Functional belching disorder (Acute) Globus sensation (Acute) Blepharospasm (Acute) Hiatal hernia (Chronic) Cholelithiasis (Chronic) Vitamin D deficiency (Chronic) Hyperlipidemia (Chronic) Anxiety (Chronic) Depression (Chronic) Osteoporosis (Chronic 01/18/17) Multiple sclerosis (Chronic) Medical History Cardiac arrhythmia Afib and pVc History of lumbar puncture Optic neuritis Surgical History Ankle fracture, left s/p ORIF 2000 or 2004 Ankle fracture, right s/p ORIF 2000 or 2004 History of appendectomy 1967 History of colposcopy with cervical biopsy Family History Mother Hypertension Alzheimer disease Father Migraine FH: mental illness Paternal Grandfather Stomach cancer Paternal Grandmother No problems noted. Maternal Grandfather , Age 40 No problems noted. 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 [employer] Pets and animals: Yes (2) Pets and animals: cat(s) Current gender identity: female How often do you talk on the phone with friends or family?: three or more times per week How often do you get together with friends or relatives?: twice per week How often do you attend jew or buddhist services?: 4 or more times per year Do you belong to any clubs or organized social groups?: yes Panel score (0-1 are the most socially isolated patients): 3 What type of physical activity do you participate in: none and walking Duration: < 15 minutes/day Jennifer/Episcopal: Unitarian Universalist Seatbelt use: always Drive 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
--- NOTE | 2020-12-25 12:11 | CMDISCH_ITS ---
- If Service Date Differs Date of service: 12/25/20 Time of Service: 12:11 LACE Index Scoring Tool - Questions: Length of Stay (in days): 3 Acuity (Admit via E.D.?): Yes E.D. Visits: 2 - Answers: Total Score: 8 Risk of Readmission: Low Risk Care Management Discharge Reason for Hospitalization: Afib-flutter. Discharge Plan: Discharge home with no new [facility] services via private vehicle with friend. Follow up with PCP, cardiology and discharge plan of care as prescribed. Patient/Family Education Needs: Review discharge instructions, limitations, medications and plan to follow up with community providers. ask me three.
== END 2020-12-25 14:50 | disposition home or self-care (01) | DRG 310 ==
LOC: ER 12-23 00:01 → ICU 12-23 10:04 → MS 12-24 11:54
PROVIDERS: Admitting Provider General Practice; Emergency Provider Physician Assistant; PCP Internal Medicine; Visit Provider General Practice
DX: I48.0 Paroxysmal atrial fibrillation (principal); I48.3 Typical atrial flutter; G35 Multiple sclerosis; M81.0 Age-related osteoporosis without current pathological fracture; F32.A Depression, unspecified; E55.9 Vitamin D deficiency, unspecified; E78.5 Hyperlipidemia, unspecified; K44.9 Diaphragmatic hernia without obstruction or gangrene; G24.5 Blepharospasm; Z20.822 Contact with and (suspected) exposure to COVID-19
CPT/HCPCS: 36415; 80053; 87635; 93005; 93306; 96361; 96374; 96375; 99221; 99285; 83735; 84439; 84443; 84484; 85025; 93010; 99219; 99225; 99226; 99238; G0378

== ENCOUNTER → 2020-12-23 09:05 | Outpatient (BNVA) | payer MEDICARE, BC, SELFPAY | PROVIDERS: PCP Internal Medicine; Referring Provider Internal Medicine; Visit Provider Internal Medicine Cardiovascular Disease | DX: R69 Illness, unspecified (principal) ==

== ENCOUNTER 2020-12-25 12:41 | Outpatient (RCR) | payer MEDICARE, BC, SELFPAY ==
--- NOTE | 2020-12-25 12:45 | HOLTER_ITS ---
APPROVED REPORT Conclusion This is a 48-hour Holter monitor ordered for atrial fibrillation Atrial fibrillation was present throughout with an average heart rate of 90. Minimum was 56, maximum 139 There were no ventricular dysrhythmias Longest R-R interval was 2.11 seconds There were no apparent patient symptoms
== END 2021-01-06 23:59 | disposition home or self-care (01) ==
LOC: RT 12:41
PROVIDERS: PCP Internal Medicine; Visit Provider Internal Medicine
DX: I48.91 Unspecified atrial fibrillation
CPT/HCPCS: 93227; 93225; 93226

== ENCOUNTER 2021-01-07 11:30 | Outpatient (CLI) | payer MEDICARE, BC, SELFPAY ==
[2021-01-07 14:57] LABS: Anion Gap 5.8 mmol/L (3-11); BUN 21 mg/dL (7-18); CO2 30.2 mmol/L (21.0-32.0); CREATININE 0.9 mg/dL (0.55-1.02); Calcium 9.5 mg/dL (8.5-10.1); Chloride 106 mmol/L (98-107); Glucose 88 mg/dL (74-106); Potassium 4.4 mmol/L (3.5-5.1); Sodium 142 mmol/L (136-145)
[2021-01-07 15:21] LABS: Digoxin 0.26 ng/mL (0.90-2.00)
== END 2021-01-07 11:31 | disposition home or self-care (01) ==
LOC: LBO 11:36
PROVIDERS: PCP Internal Medicine; Visit Provider Internal Medicine
DX: I48.3 Typical atrial flutter (principal); I48.91 Unspecified atrial fibrillation
CPT/HCPCS: 36415; 80048; 80162

== ENCOUNTER 2021-01-09 12:48 | Outpatient (CLI) | payer MEDICARE, BC, SELFPAY ==
--- NOTE | 2021-01-09 12:45 | RT.EKG_ITS ---
APPROVED REPORT Exam: Resting ECG Reason for Exam: afib Patient Location: O HR:77 bpm ECG Measurements Heart Rate 77 AXIS MN [id number] P [id number] QRSd 88 QRS 0 QT 359 T -1 QTc 407 Conclusion Atrial fibrillation...? atrial activity Low voltage, extremity and precordial leads...extremity<0.5mV, precordial<1.0mV Nondiagnostic ST-T abnormalities
== END 2021-01-09 12:49 | disposition home or self-care (01) ==
LOC: DI.CARD 12:49
PROVIDERS: PCP Internal Medicine; Visit Provider Internal Medicine Cardiovascular Disease
DX: I48.91 Unspecified atrial fibrillation (principal)
CPT/HCPCS: 93010

== ENCOUNTER → 2021-01-09 13:17 | Outpatient (BNVA) | payer MEDICARE, BC, SELFPAY | PROVIDERS: PCP Internal Medicine; Referring Provider Internal Medicine; Visit Provider Internal Medicine Cardiovascular Disease | DX: I48.91 Unspecified atrial fibrillation (principal); I48.3 Typical atrial flutter; Z79.01 Long term (current) use of anticoagulants | CPT/HCPCS: 93005; 99203; 99214 ==

== ENCOUNTER 2021-01-23 02:58 | Outpatient (CLI) | payer MEDICARE, BC, SELFPAY ==
[2021-01-23 18:43] LABS: Source Nasal/Nares
[2021-01-23 22:06] LABS: COVID-19 PCR Negative (Negative)
== END 2021-01-23 02:59 | disposition home or self-care (01) ==
LOC: LBO 02:59
PROVIDERS: PCP Internal Medicine; Visit Provider Internal Medicine Cardiovascular Disease
DX: Z20.822 Contact with and (suspected) exposure to COVID-19 (principal)
CPT/HCPCS: 87635

== ENCOUNTER 2021-01-26 07:30 | Day surgery (SDC) | payer MEDICARE, BC, SELFPAY ==
--- NOTE | 2021-01-26 06:00 | RT.EKG_ITS ---
APPROVED REPORT Exam: Resting ECG Reason for Exam: Pre-op Patient Location: O HR:80 bpm ECG Measurements Heart Rate 80 AXIS HI [id number] P [id number] QRSd 83 QRS 104 QT 375 T -1 QTc 433 Conclusion Atrial fibrillation...V-rate 60- 94, irreg A-activity Right axis deviation...QRS axis ( 91,269) Low voltage, precordial leads...precordial leads <1.0mV Borderline T abnormalities, diffuse leads...T flat/neg
[2021-01-26 07:37] VITALS: BP 102/61; PULSE 80; RESP 18; TEMP 36.8; O2SAT 97
[2021-01-26] MEDS: Normal Saline 1,000 ML 30 ML IV (08:24)
--- NOTE | 2021-01-26 08:49 | W.ANESPRE ---
General Info Date of Service Date Performed: 01/26/21 Height: 5 ft 5 in Weight: 71 kg Body Mass Index (BMI): 26.0 Surgical Procedure: Operation Date: 01/26/21 09:00 Proposed Procedures Side Surgeon p Cardioversion Anna Alvarado MD Actual Procedures Side Surgeon p Cardioversion Not Applicable Anna Alvarado MD Pre-Op Diagnosis Post-Op Diagnosis (1) Atrial flutter (2) Atrial fibrillation Meds Allergies and Home Medications Allergies Allergy/AdvReac Type Severity Reaction Status Date / Time No Known Allergies Allergy Verified 01/26/21 07:48 Home Medication Medication Instructions Recorded cholecalciferol (vitamin D3) 50 2,000 unit PO DAILY 11/02/17 mcg (2,000 unit) tablet ydhmtzjz-cdk-nknu-FA-Ca carb-vit K 1 tab PO DAILY 11/02/17 18 mg iron-400 mcg-500 mg tablet calcium carbonate-vitamin D3 600 1 cap PO BID cap 06/12/18 mg calcium-200 unit capsule botox 60 unit IJ .q3 months 08/19/20 alendronate 70 mg tablet 70 mg PO QWEEK #12 tab 09/25/20 zinc acetate 25 mg (zinc) capsule 25 mg PO DAILY PRN 12/10/20 Eliquis 5 mg PO BID #60 tab 12/25/20 verapamil 120 mg tablet,extended 120 mg PO BID #60 tab 12/31/20 release bisoprolol fumarate 5 mg tablet 5 mg PO DAILY #30 tab 01/21/21 digoxin 125 mcg (0.125 mg) tablet 62.5 mcg PO DAILY #30 tab 01/21/21 Current Visit Medications: Current Medications Generic Name Dose Route Start Last Admin Trade Name Freq PRN Reason Stop Dose Admin Sodium Chloride 1,000 mls @ 30 mls/hr 01/26/21 06:00 01/26/21 08:24 Saline 1000ml Bag IV 30 mls/hr INFUSION SANDY Administration PFSH Active Problems Active Problems: Problem Status Onset Code Polyp of cervix N84.1 Multiple sclerosis G35 Osteoporosis 01/18/17 M81.0 Depression F32.9 Anxiety F41.9 Hyperlipidemia E78.5 Vitamin D deficiency E55.9 Cholelithiasis K80.20 Hiatal hernia K44.9 Blepharospasm G24.5 Globus sensation F45.8 Functional belching disorder R14.2 Paroxysmal A-fib I48.0 Functional disorder of intestine K59.9 Atrial fibrillation I48.91 Atrial flutter I48.92 Medical History Medical History (Updated 01/26/21 @ 07:49 by Mimi Love) Blepharospasm of both eyes Cardiac arrhythmia Afib and pVc History of lumbar puncture Optic neuritis Surgical History Surgical History Ankle fracture, left s/p ORIF 2000 or 2004 Ankle fracture, right s/p ORIF 2000 or 2004 History of ankle surgery History of appendectomy 1967 History of colposcopy with cervical biopsy Tobacco Smoking/Tobacco Use Status: Never Alcohol Alcohol Intake: former Substance Use Substance use: Never Substance use type: does not use Vital Signs and Lab Results Vital Signs Most Recent Vital Signs in EMR: Most Recent Vital Signs Temp Pulse Resp BP Pulse Ox 36.8 C 80 18 102/61 97 01/26/21 07:37 01/26/21 07:37 01/26/21 07:37 01/26/21 07:37 01/26/21 07:37 Lab Results Blood Type / Crossmatch: No Data to Display Complete Blood Count: No Data to Display Complete Metabolic Panel: Sodium Level 142 mmol/L (136-145) 01/07/21 13:45 01/07/21 Potassium Level 4.4 mmol/L (3.5-5.1) 01/07/21 13:45 01/07/21 Chloride Level 106 mmol/L (98-107) 01/07/21 13:45 01/07/21 Carbon Dioxide Level 30.2 mmol/L (21.0-32.0) 01/07/21 13:45 01/07/21 Blood Urea Nitrogen 21 mg/dL (7-18) H 01/07/21 13:45 01/07/21 Creatinine 0.9 mg/dL (0.55-1.02) 01/07/21 13:45 01/07/21 Estimated GFR/1.73 m2 >= 60.00 (mL/min/1.73m2) 01/07/21 13:45 01/07/21 Calcium Level 9.5 mg/dL (8.5-10.1) 01/07/21 13:45 01/07/21 Glucose Level 88 mg/dL (74-106) 01/07/21 13:45 01/07/21 Liver Function Panel: No Data to Display Coagulation Panel: No Data to Display Cardiac Panel: No Data to Display Arterial Blood Gas: No Data to Display Venous Blood Gas: No Data to Display Pancreas Panel: No Data to Display Thyroid Panel: No Data to Display Infectious Disease: Coronavirus (COVID-19)(PCR) Negative (Negative) 01/23/21 10:40 01/23/21 Coronavirus 2019 Source Nasal/Nares 01/23/21 10:40 01/23/21 Blood Cultures: No Data to Display Toxicology Panel: Digoxin Level 0.26 ng/mL (0.90-2.00) L 01/07/21 13:45 01/07/21 Anesthesia Assessment and Plan Anesthesia History Personal History: No History of Anesthesia Complications Family History: No Family History of Anesthesia Complications Exercise Tolerance Exercise Tolerance: Metabolic Equivalents>4 Pertinent Negatives Pertinent Negatives: No Symptoms of GERD, No Major Cardiovascular Symptoms or Complaints (Chest fluttering ), No Major Pulmonary Symptoms or Complaints and No History of CVA/TIA Cardiac & Pulmonary Exam Cardiac Exam: Normal S1/S2 Heart Sounds Pulmonary Exam: Clear Bilateral Breath Sounds Implantable Cardiac Device Does patient have a Pacemaker or an ICD?: No Airway Exam Known Difficult Airway: No Mallampati Class: 1 Mouth Opening: Normal (> 3cm) Thyromental Distance: Greater than 3 cm Neck Range of Motion: Full ROM Neck Circumference: Normal Teeth Condition: Normal Dentition Airway Comments: Crowns in back ASA Classification ASA Score: ASA 2 Emergency Case?: No NPO Status NPO Status: NPO Clears >2 hours, Solids >8 hours Anesthesia Plan Resuscitation Status: Full Code Anesthesia Technique: General Anesthesia Airway Planned: Natural Airway Monitors Used: Standard Monitors
[2021-01-26 08:53] VITALS: BMI 26.0
--- NOTE | 2021-01-26 09:00 | RT.EKG_ITS ---
APPROVED REPORT Exam: Resting ECG Reason for Exam: Post-op cardioversion Patient Location: O HR:51 bpm ECG Measurements Heart Rate 51 AXIS VA 156 P 43 QRSd 84 QRS 108 QT 426 T 23 QTc 394 Conclusion Sinus bradycardia...rate< 60 Right axis deviation...QRS axis ( 91,269) Low voltage, extremity and precordial leads...extremity<0.5mV, precordial<1.0mV
[2021-01-26 09:22] VITALS: BP 93/71; PULSE 55; RESP 16; TEMP 36.7; O2SAT 96
--- NOTE | 2021-01-26 09:26 | W.ANESPOSTOP ---
Postoperative Evaluation Date, Time and Location Date Performed: 01/26/21 Time Performed: : Patient Location: Day Surgery Unit Vital Signs Most Recent Imported Vital Signs: Most Recent Vital Signs Temp Pulse Resp BP Pulse Ox 36.7 C 55 L 16 93/71 L 96 01/26/21 09:22 01/26/21 09:22 01/26/21 09:22 01/26/21 09:22 01/26/21 09:22 Pain Score Most Recent Pain Score: Most Recent Pain Score Pain Level 0 01/26/21 09:22 Assessment Mental Status: Awake (Alert & Oriented to Patient Baseline) Airway and Respiratory Function: Patent airway with normal (patient baseline) respiratory exam Cardiovascular Function: Hemodynamically Stable Hydration Status: Adequately Hydrated Nausea & Vomiting: No Nausea or Vomiting Pain: Pt. Denies Any Pain Peripheral Nerve Block: Patient did not receive a nerve block
--- NOTE | 2021-01-26 09:29 | W.CARDVER ---
Date of service: 01/26/21 Time of Service: 09:29 Cardioversion DATE OF PROCEDURE: 01/26/21 PRE-OP DIAGNOSES: Atrial fibrillation POST-OP DIAGNOSES: same Anesthesia Type: MAC Indications: Atrial fibrillation Procedure Description: Patient was sedated by the anesthesiologist. Anterior and posterior pads were placed to the left chest. When adequate anesthesia had been achieved, patient received 1 synchronized shock at 150 W seconds with prompt conversion to sinus rhythm rate approximately 50. Patient was allowed to recover There were no complications. She was sent to the recovery room for further care
--- NOTE | 2021-01-26 09:48 | W.PM.DSUDISC ---
Discharge Plan Disposition Patient Disposition: HOME Condition: Stable Discharge Details Attending Provider: Anna Alvarado Primary Care Provider: Adalgisa Cho Home Meds and New Rx's Prescriptions: Continued botox 60 unit IJ .q3 months RF: 0 bisoprolol fumarate 5 mg tablet 5 mg PO DAILY Qty: 30 RF: 2 cholecalciferol (vitamin D3) 2,000 unit tablet 2,000 unit PO DAILY RF: 0 Women's Multivitamin 18 mg iron-400 mcg-500 mg tablet 1 tab PO DAILY RF: 0 alendronate [Fosamax] 70 mg tablet 70 mg PO QWEEK Qty: 12 RF: 3 zinc acetate 25 mg (zinc) capsule 25 mg PO DAILY PRNRF: 0 Calcium 600 + D(3) 600 mg calcium- 200 unit capsule 1 cap PO BID RF: 0 Eliquis 5 mg tablet 5 mg PO BID Qty: 60 RF: 1 Discontinued digoxin 125 mcg (0.125 mg) tablet 62.5 mcg PO DAILY Qty: 30 RF: 1 verapamil [Calan SR] 120 mg tablet extended release 120 mg PO BID Qty: 60 RF: 1 Discharge Instructions Referrals: Anna Alvarado MD [ [facility] STAFF PHYSICIAN] - Activity:: Activity as Tolerated Diet:: As Tolerated Discharge Orders Discharge Orders: Discharge Order (Routine); Ordered 01/26/21 Ordered By: Anna Alvarado
[2021-01-26 09:49] VITALS: BP 98/55; PULSE 54; RESP 16; TEMP 36.5; O2SAT 95
== END 2021-01-26 10:26 | disposition home or self-care (01) ==
PROVIDERS: PCP Internal Medicine; Visit Provider Internal Medicine Cardiovascular Disease
PROC: 5A2204Z Restoration of Cardiac Rhythm, Single (ICD-10-PCS; CPT 92960; principal; 2021-01-26 09:00)
DX: I48.0 Paroxysmal atrial fibrillation (principal); I48.92 Unspecified atrial flutter; G35 Multiple sclerosis
CPT/HCPCS: 92960; 93005; 93010; J2704

== ENCOUNTER 2021-02-12 13:53 | Outpatient (CLI) | payer MEDICARE, BC, SELFPAY ==
--- NOTE | 2021-02-12 13:30 | RT.EKG_ITS ---
APPROVED REPORT Exam: Resting ECG Reason for Exam: Recent Cardioversion Patient Location: O HR:56 bpm ECG Measurements Heart Rate 56 AXIS MD 146 P 81 QRSd 82 QRS 85 QT 426 T 79 QTc 412 Conclusion Sinus rhythm...normal P axis, V-rate 50- 99 Probable left atrial enlargement...P >50mS, <-0.10mV V1 Borderline right axis deviation...QRS axis ( 81, 90) Low voltage, precordial leads...precordial leads <1.0mV
== END 2021-02-12 13:54 | disposition home or self-care (01) ==
LOC: DI.CARD 14:11
PROVIDERS: PCP Internal Medicine; Referring Provider Internal Medicine; Visit Provider Internal Medicine Cardiovascular Disease
DX: I48.0 Paroxysmal atrial fibrillation (principal); I48.3 Typical atrial flutter
CPT/HCPCS: 93010

== ENCOUNTER → 2021-02-12 13:53 | Outpatient (BNVA) | payer MEDICARE, BC, SELFPAY | PROVIDERS: PCP Internal Medicine; Referring Provider Internal Medicine; Visit Provider Internal Medicine Cardiovascular Disease | DX: R09.89 Other specified symptoms and signs involving the circulatory and respiratory systems (principal); Z86.79 Personal history of other diseases of the circulatory system; Z98.890 Other specified postprocedural states | CPT/HCPCS: 93005; 99214; 99213 ==

== ENCOUNTER 2021-04-03 02:22 | Outpatient (CLI) | payer MEDICARE, BC, SELFPAY ==
--- NOTE | 2021-04-03 07:00 | DI.MAMMO_ITS ---
Exam(s) MAMMO SCREENING EXAM: MAMMO SCREENING CLINICAL HISTORY: screening,z12.39. TECHNIQUE: Bilateral full field digital CC and MLO mammographic images were obtained with 3D tomosyn thesis and utilizing computer aided detection (CAD). COMPARISON: Prior mammograms were reviewed, the most recent being March 2019. FINDINGS: There are no new spiculated masses nor malignant appearing microcalcification groups. There is no significant architectural distortion nor skin thickening-retraction. IMPRESSION: No radiographic evidence of malignancy. BI-RADS Category 1 - Negative Breast Density - Category B - Scattered areas of fibroglandular density Breast density Category C or D implies that the patient has dense breast tissue. Dense breast tissue can make it harder to find cancer on a mammogram. Dense breast tissue is also associated with an incr eased risk of breast cancer. This information about the result of the mammogram report was provided to the patient to raise their awareness. Use this report when you speak with the patient about their risks for breast cancer, which includes their family history. At that time, you may recommend additional screening tests (Ultrasoun d or MRI) as these tests may add significant information. A negative radiographic report should not delay biopsy if a dominant or clinically suspicious mass is present. Up to ten percent of cancers are not identified on mammography. A negative report may reinforce clinical impression. Adenosis and dense breasts may obscure an underlying neoplasm. False positive reports average 6 to 10%. Patient will receive a letter notifying them of these results.
== END 2021-04-03 02:42 ==
PROVIDERS: PCP Internal Medicine; Visit Provider Internal Medicine
DX: Z12.31 Encounter for screening mammogram for malignant neoplasm of breast (principal)
CPT/HCPCS: 77063; 77067

== ENCOUNTER → 2021-08-11 10:42 | Outpatient (BNVA) | payer MEDICARE, BC, SELFPAY | PROVIDERS: PCP Internal Medicine; Referring Provider Internal Medicine; Visit Provider Internal Medicine Cardiovascular Disease | DX: I48.0 Paroxysmal atrial fibrillation (principal) | CPT/HCPCS: 99214; 99213 ==

== ENCOUNTER → 2022-01-13 02:30 | Outpatient (CLI) | payer MEDICARE, BC, SELFPAY ==
--- NOTE | 2022-01-13 08:15 | DI.DEXA_ITS ---
Exam(s) XR DEXA BONE DENSITY W/WO SALLY EXAM: XR DEXA BONE DENSITY W/WO SALLY CLINICAL HISTORY: Interim assessment s/p 5y Fossamax tx,f/u osteoporosis, m81.0 TECHNIQUE: COMPARISON: No exams were available for comparison FINDINGS: DEXA scan was performed according to the usual protocol. Please see the accompanying data sheets. Left hip scanning shows shows T-score -1.5 with left femoral neck T-score -2.3. Lumbar spine scanning shows T-score -2.6. Left forearm scanning shows T-score -2.0. IMPRESSION: The measurements are consistent with osteoporosis according to the WHO criteria. Lateral vertebral s canogram shows no evidence of a vertebral compression fracture. RADIATION DOSE DELIVERED: Total DLP
== END ==
PROVIDERS: PCP Nurse Practitioner Adult Health; Visit Provider Nurse Practitioner Adult Health
DX: M81.0 Age-related osteoporosis without current pathological fracture (principal); Z79.83 Long term (current) use of bisphosphonates
CPT/HCPCS: 36415; 77080; 80048; 80061; 82306

== ENCOUNTER 2022-01-13 03:44 | Outpatient (CLI) | payer MEDICARE, BC, SELFPAY ==
[2022-01-13 15:21] LABS: BUN 15 mg/dL (7-18); CREATININE 0.7 mg/dL (0.55-1.02); Calcium 9.2 mg/dL (8.5-10.1); Calculated LDL 163 mg/dL (<100); Chloride 103 mmol/L (98-107); Cholesterol 255 mg/dL (<200); Estimated GFR 92.98 (mL/min/1.73m2); Glucose 94 mg/dL (74-106); HDL Cholesterol 80 mg/dL (40-60); Potassium 4.4 mmol/L (3.5-5.1); Sodium 140 mmol/L (136-145); Triglyceride 61 mg/dL (<150)
[2022-01-13 17:33] LABS: Vitamin D 25 Total 68.3 ng/mL (30-100)
== END 2022-01-13 03:45 | disposition home or self-care (01) ==
LOC: LBO 03:44
PROVIDERS: PCP Nurse Practitioner Adult Health; Visit Provider Nurse Practitioner Adult Health
DX: E55.9 Vitamin D deficiency, unspecified (principal); E78.5 Hyperlipidemia, unspecified; I48.0 Paroxysmal atrial fibrillation; Z13.1 Encounter for screening for diabetes mellitus; Z13.220 Encounter for screening for lipoid disorders; Z51.81 Encounter for therapeutic drug level monitoring; M81.0 Age-related osteoporosis without current pathological fracture
CPT/HCPCS: 36415; 80048; 80061; 82306

== ENCOUNTER → 2022-02-09 09:47 | Outpatient (BNVA) | payer MEDICARE, BC, SELFPAY | PROVIDERS: PCP Nurse Practitioner Adult Health; Visit Provider Internal Medicine Cardiovascular Disease | DX: I48.0 Paroxysmal atrial fibrillation | CPT/HCPCS: 99213 ==

== ENCOUNTER → 2022-10-12 01:23 | Outpatient (CLI) | payer MEDICARE, BC, SELFPAY ==
--- NOTE | 2022-10-12 08:00 | DI.MAMMO_ITS ---
Exam(s) MAMMO SCREENING EXAM: MAMMO SCREENING CLINICAL HISTORY: screening,z12.39. TECHNIQUE: Bilateral full field digital CC and MLO mammographic images were obtained with 3D tomosyn thesis and utilizing computer aided detection (CAD). COMPARISON: Prior mammograms were reviewed. FINDINGS: There has been no significant change in the appearance and distribution of the fibroglandular tissue. No CAD designations There are no new spiculated masses nor malignant appearing microcalcification groups. There is no significant architectural distortion nor skin thickening-retraction. IMPRESSION: No radiographic evidence of malignancy. BI-RADS Category 1 - Negative Breast Density - Category B - Scattered areas of fibroglandular density Breast density Category C or D implies that the patient has dense breast tissue. Dense breast tissue can make it harder to find cancer on a mammogram. Dense breast tissue is also associated with an incr eased risk of breast cancer. This information about the result of the mammogram report was provided to the patient to raise their awareness. Use this report when you speak with the patient about their risks for breast cancer, which includes their family history. At that time, you may recommend additional screening tests (Ultrasoun d or MRI) as these tests may add significant information. A negative radiographic report should not delay biopsy if a dominant or clinically suspicious mass is present. Up to ten percent of cancers are not identified on mammography. A negative report may reinforce clinical impression. Adenosis and dense breasts may obscure an underlying neoplasm. False positive reports average 6 to 10%. Patient will receive a letter notifying them of these results.
== END ==
PROVIDERS: PCP Nurse Practitioner Adult Health; Visit Provider Nurse Practitioner Adult Health
DX: Z12.31 Encounter for screening mammogram for malignant neoplasm of breast (principal)
CPT/HCPCS: 77063; 77067

== ENCOUNTER 2023-02-08 09:31 | Outpatient (CLI) | payer MEDICARE, BC, SELFPAY ==
--- NOTE | 2023-02-08 09:30 | RT.EKG_ITS ---
APPROVED REPORT Exam: Resting ECG Reason for Exam: afib Patient Location: O HR:55 bpm ECG Measurements Heart Rate 55 AXIS IN 145 P 71 QRSd 89 QRS 61 QT 413 T 31 QTc 395 Conclusion Sinus rhythm...normal P axis, V-rate 50- 99 Low voltage, precordial leads...precordial leads <1.0mV I have reviewed and interpreted ECG and agree with software generated interpretation.
== END 2023-02-08 09:32 | disposition home or self-care (01) ==
LOC: DI.CARD 09:32
PROVIDERS: PCP Nurse Practitioner Adult Health; Visit Provider Internal Medicine Interventional Cardiology
DX: I48.0 Paroxysmal atrial fibrillation (principal)
CPT/HCPCS: 93010

== ENCOUNTER → 2023-02-08 09:51 | Outpatient (BNVA) | payer MEDICARE, SELFPAY | PROVIDERS: PCP Nurse Practitioner Adult Health; Visit Provider Internal Medicine Interventional Cardiology | DX: Z81.8 Family history of other mental and behavioral disorders (principal); I48.0 Paroxysmal atrial fibrillation | CPT/HCPCS: 93005; 99213 ==

== ENCOUNTER 2023-11-29 14:11 | Outpatient (CLI) | payer MEDICARE, SELFPAY ==
--- NOTE | 2023-11-29 14:45 | RT.EKG_ITS ---
APPROVED REPORT Exam: Resting ECG Reason for Exam: establish care Patient Location: O HR:141 bpm ECG Measurements Heart Rate 141 [address] [place] [id number] P [id number] QRSd 117 QRS 82 QT 301 T 32 QTc 461 Conclusion Atrial fibrillation...V-rate 118-153, irreg A-activity Low voltage, extremity and precordial leads...extremity<0.5mV, precordial<1.0mV Baseline wander in lead(s) V3
== END 2023-11-29 14:12 | disposition home or self-care (01) ==
LOC: DI.CARD 14:45
PROVIDERS: PCP Nurse Practitioner Adult Health; Referring Provider Nurse Practitioner Adult Health; Visit Provider Internal Medicine Cardiovascular Disease
DX: I48.0 Paroxysmal atrial fibrillation (principal)
CPT/HCPCS: 93010

== ENCOUNTER → 2023-11-29 14:11 | Outpatient (BNVA) | payer MEDICARE, SELFPAY | PROVIDERS: PCP Nurse Practitioner Adult Health; Referring Provider Nurse Practitioner Adult Health; Visit Provider Internal Medicine Cardiovascular Disease | DX: I48.92 Unspecified atrial flutter (principal); I48.0 Paroxysmal atrial fibrillation | CPT/HCPCS: 93005; 99214 ==

== ENCOUNTER 2023-12-08 14:40 | Outpatient (CLI) | payer MEDICARE, SELFPAY ==
--- NOTE | 2023-12-08 14:30 | RT.EKG_ITS ---
APPROVED REPORT Exam: Resting ECG Reason for Exam: afib Patient Location: O HR:126 bpm ECG Measurements Heart Rate 126 [address] [place] [id number] P [id number] QRSd 87 QRS 67 QT 309 T -5 QTc 448 Conclusion Atrial flutter...A-rate 308 Low voltage, precordial leads...precordial leads <1.0mV
== END 2023-12-08 14:41 | disposition home or self-care (01) ==
LOC: DI.CARD 14:41
PROVIDERS: PCP Nurse Practitioner Adult Health; Visit Provider Internal Medicine Cardiovascular Disease
DX: I48.0 Paroxysmal atrial fibrillation (principal)
CPT/HCPCS: 93010

== ENCOUNTER → 2023-12-08 14:44 | Outpatient (BNVA) | payer MEDICARE, SELFPAY | PROVIDERS: PCP Nurse Practitioner Adult Health; Visit Provider Internal Medicine Cardiovascular Disease | DX: I48.3 Typical atrial flutter (principal) | CPT/HCPCS: 93005; 99214 ==

== ENCOUNTER 2023-12-26 03:12 | Outpatient (CLI) | payer MEDICARE, SELFPAY ==
[2023-12-26 14:28] LABS: Anion Gap 5.4 mmol/L (3-11); BUN 12 mg/dL (7-18); CO2 30.6 mmol/L (21.0-32.0); CREATININE 0.8 mg/dL (0.55-1.02); Calcium 9.4 mg/dL (8.5-10.1); Calculated LDL 138 mg/dL (<100); Chloride 106 mmol/L (98-107); Cholesterol 227 mg/dL (<200); Estimated GFR 78.24 (mL/min/1.73m2); Glucose 93 mg/dL (74-106); HDL Cholesterol 74 mg/dL (40-60); Potassium 4.2 mmol/L (3.5-5.1); Sodium 142 mmol/L (136-145); Triglyceride 77 mg/dL (<150)
== END 2023-12-26 03:13 | disposition home or self-care (01) ==
LOC: LBO 03:12
PROVIDERS: PCP Nurse Practitioner Adult Health; Visit Provider Nurse Practitioner Adult Health
DX: Z51.81 Encounter for therapeutic drug level monitoring (principal); E78.5 Hyperlipidemia, unspecified; Z13.220 Encounter for screening for lipoid disorders
CPT/HCPCS: 36415; 80048; 80061

== ENCOUNTER 2024-01-02 06:12 | Day surgery (SDC) | payer MEDICARE, SELFPAY ==
[2024-01-02] VITALS (18 sets, daily range): BP systolic 80–114; BP diastolic 48–90; PULSE 57–86; RESP 7–21; TEMP 36.3–36.9; O2SAT 94–98; BMI 27.8
[2024-01-02] MEDS: Normal Saline Flush 10 ML SYR IV (06:42)
--- NOTE | 2024-01-02 06:45 | RT.EKG_ITS ---
APPROVED REPORT Exam: Resting ECG Reason for Exam: Pre-op cardioversion Patient Location: O HR:88 bpm ECG Measurements Heart Rate 88 AXIS [place] [id number] P [id number] QRSd 88 QRS 90 QT 372 T 41 QTc 450 Conclusion Atrial fibrillation...V-rate 66-122, irreg A-activity Low voltage, extremity and precordial leads...extremity<0.5mV, precordial<1.0mV
--- NOTE | 2024-01-02 06:52 | W.ANESPRE ---
General Info Date of Service Date Performed: 01/02/24 Height: 5 ft 4 in Weight: 73.5 kg Body Mass Index (BMI): 27.8 Surgical Procedure: Operation Date: 01/02/24 07:30 Proposed Procedure Side Surgeon p Cardioversion Anais Alvarado MD Actual Procedure Side Surgeon p Cardioversion Not Applicable Anais Alvarado MD Pre-Op Diagnosis Post-Op Diagnosis Atrial flutter Meds Allergies and Home Medications Allergies Allergy/AdvReac Type Severity Reaction Status Date / Time No Known Allergies Allergy Verified 01/02/24 06:31 Home Medication ?Medication ?Instructions ?Recorded calcium 500 mg (as citrate)-vit D3 1 tab PO DAILY 12/21/21 12.5 mcg (500 unit) chewable tablet rivaroxaban 20 mg tablet 20 mg PO DAILY #90 tabs 05/13/23 bisoprolol fumarate 10 mg tablet 10 mg PO DAILY #30 tabs 11/29/23 cholecalciferol (vitamin D3) 50 1,000 unit PO DAILY 12/28/23 mcg (2,000 unit) tablet multivitamin 1 tab PO QAM 12/28/23 Current Visit Medications: Current Medications Generic Name Dose Route Start Last Admin Trade Name Freq PRN Reason Stop Dose Admin IV Miscellaneous Supplies 1 each 01/02/24 06:00 Iv Access IV 01/02/24 23:59 DIRECTED SANDY Sodium Chloride 0 ml 01/02/24 06:00 01/02/24 06:42 Normal Saline Flush 10 Ml Syr IV 01/02/24 23:59 10 ml PRN PRN Administration Sodium Chloride 0 ml 01/02/24 06:00 Normal Saline 10 Ml Vial IJ 01/02/24 23:59 DIRECTED PRN Sterile Water 0 ml 01/02/24 06:00 Water,Injection,Sterile 10 Ml Vial IJ 01/02/24 23:59 DIRECTED PRN PFSH Active Problems Active Problems: Problem Status Onset Code Family history of dementia Chronic Z81.8 Mild obstructive sleep apnea Chronic ~07/2021 G47.33 Sessile colonic polyp Acute K63.5 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 denies Atrial fibrillation (~12/2020) Cardiology Functional disorder of intestine Globus sensation Optic neuritis (~2009) Cardiac arrhythmia Afib and pVc Hiatal hernia Cholelithiasis pt. denies Anxiety Depression Multiple sclerosis (~2009) In remission--2019; no longer seeing neuro History of lumbar puncture Polyp of cervix Surgical History Surgical History History of ankle surgery Ankle fracture, right s/p ORIF 2000 or 2004 Ankle fracture, left s/p ORIF 2000 or 2004 History of appendectomy 1967 History of colposcopy with cervical biopsy Tobacco Smoking/Tobacco Use Status: Never Passive smoking exposure: No Alcohol Alcohol Intake: current Alcohol intake frequency: a few times a month Alcohol type: beer and wine Substance Use Substance use: Never Substance use type: does not use Vital Signs and Lab Results Vital Signs Most Recent Vital Signs in EMR: Most Recent Vital Signs Temp Pulse Resp BP Pulse Ox 36.3 C L 86 16 114/90 98 01/02/24 06:23 01/02/24 06:23 01/02/24 06:23 01/02/24 06:23 01/02/24 06:23 Lab Results Blood Type / Crossmatch: No Data to Display Complete Blood Count: No Data to Display Complete Metabolic Panel: Sodium 142 mmol/L (136-145) 12/26/23 13:25 Potassium 4.2 mmol/L (3.5-5.1) 12/26/23 13:25 Chloride 106 mmol/L (98-107) 12/26/23 13:25 Carbon Dioxide 30.6 mmol/L (21.0-32.0) 12/26/23 13:25 BUN 12 mg/dL (7-18) 12/26/23 13:25 Creatinine 0.8 mg/dL (0.55-1.02) 12/26/23 13:25 Est GFR (CKD-EPI 2020) 78.24 (mL/min/1.73m2) 12/26/23 13:25 Calcium 9.4 mg/dL (8.5-10.1) 12/26/23 13:25 Glucose 93 mg/dL (74-106) 12/26/23 13:25 Liver Function Panel: No Data to Display Coagulation Panel: No Data to Display Cardiac Panel: No Data to Display Arterial Blood Gas: No Data to Display Venous Blood Gas: No Data to Display Pancreas Panel: No Data to Display Thyroid Panel: No Data to Display Infectious Disease: No Data to Display Blood Cultures: No Data to Display Toxicology Panel: No Data to Display Imaging and Studies Imaging and Studies Study information below may be from another EMR and interpreted by another provider. Please see original notes in EMR for more complete details. EKG Summary: EKG PATIENT NAME: Elissa Truong UNIT #: [id number] ORDERING PROVIDER: Anais Alvarado M.D. PRIMARY CARE PROVIDER: NATY SHAH NP DATE/TIME OF SERVICE: 12/08/231326 : 1950 PERFORMING LOCATION: .CARD APPROVED REPORT Exam: Resting ECG Reason for Exam: afib Patient Location: O HR:126 bpm ECG Measurements Heart Rate 126 [place] [id number] P [id number] QRSd 87 QRS 67 QT 309 T-5 QTc 448 Conclusion Atrial flutter...A-rate 308 Low voltage, precordial leads...precordial leads <1.0mV <Electronically signed by ANAIS ALVARADO MD in OV> E-Sign Date: 12/08/23 E-Sign Time: 1515 Echocardiogram Summary: Patient Name: Elissa Truong Unit #: [id number] Loc: ICU Ordering Provider: Shiraz Harrell Status: ADM GERHARD Primary Care Provider: Adalgisa Cho M.D. Date of Exam: 12/23/20 Sex: F Admission Date: 12/22/20 : 1950 Age: 70 APPROVED REPORT EXAM: Comprehensive 2D, Doppler, and color-flow Echocardiogram Patient Location: In-Patient Room/Bed: EAG081 Import Customer Service Manager: Tonia De La Rosa RDCS (AE) Indications: Chest pain, A Fib Other Information Study Quality: Adequate Conclusion Normal left ventricular wall thickness and chamber size. Estimated ejection fraction is 60%. Wall motion is normal Normal right ventricular size and systolic function Both atria are normal in size Trileaflet aortic valve without stenosis or regurgitation Normal tricuspid valve with trace to mild regurgitation. Estimated right ventricular systolic pressure is normal, 20 mmHg Normal mitral valve with mild regurgitation Wall motion Left Ventricle The left ventricle is normal size. The left ventricular systolic function is normal. The left ventricular ejection fraction is within the normal range. There is normal left ventricular wall thickness. There is normal LV segmental wall motion. There is no ventricular septal defect visualized. LVEF is 60%. Right Ventricle Right ventricle is grossly normal in size. Right ventricular systolic function is grossly normal. The RVSP is 20.5mmHg. Atria The left atrium size is normal. The right atrium size is normal. The interatrial septum is intact with no evidence for an atrial septal defect. Aortic Valve The aortic valve is normal in structure. Aortic valve is trileaflet. There is no aortic valvular stenosis. No aortic regurgitation is present. Mitral Valve The mitral valve is normal in structure. No evidence of mitral valve stenosis. Mild mitral regurgitation. Tricuspid Valve The tricuspid valve is normal in structure. There is no tricuspid valve stenosis. Trace to mild tricuspid regurgitation. Pulmonic Valve The pulmonary valve is normal in structure. There is no pulmonic valvular stenosis. There is no pulmonic valvular regurgitation. Great Vessels The aortic root is normal in size. The ascending aorta is mildly dilated. Aortic arch is normal in caliber. IVC is normal in size and collapses >50% with inspiration. Pericardium There is no pericardial effusion. 2D Dimensions IVSD d PLAX 0.72 cm F: 0.6-1.0LV Vol A2C d MOD 85.8 mL LVPW d PLAX 0.73 cm F: 0.6 - 1.0LV Vol A4C d MOD 83.0 mL LVID d PLAX 4.44 cm F: 3.8 - 5.2LA vol/ BSA A2C s A-L37.1 mL/m2 LVDs 3.15 cm F: 2.2 - 3.5LA vol/ BSA A4C s A-L41.1 mL/m2 Ao Root d 2.94 cm F: 2.7 - 3.3LA Vol/ BSA Biplane s A-L 41.6 mL/m2 RA Area A4C14.74 cm2LA Area A4C s MOD 23.38 cm2 RA Vol/ BSA A4C s A-L 21.0 mL/m2LA Area A2C s MOD 20.87 cm2 Ao Asc Diam d 3.49 cm F: 2.3 - 3.1LV EF A4C MOD 58.1 % LV EF Teichholz 55.6 %LV EF A2C MOD 57.8 % LVEF (Gonsalez's)57.96 % F: 54 - 74LV EF Biplane MOD 58.0 % LV Lqxkcp35.95 mL F: 46 - 780EE79.41 mL LV Volume Index36.23 mL/m2 F: 29 - 61SV Index27.03 mL/m2 LV Vol Biplane MOD 85.2 mL FS28.75 % M-Mode TAPSE 1.83 cm (M/F) >1.7 LV Diastology MV E' medial0.127 (>0.07 m/s)E/A Ratio 2.2 LV E/e MED6.75 (<14)MV E Vmax 0.86 (0.4-1.3 m/s) MV E' lateral0.110 (>0.1 m/s)MV A Vmax 0.40 (0.4-1.3 m/s) LV E/e LAT7.80 (<14)MV E/A Ratio 2.07 MV E/E' medial 6.78 MV E/E' lateral7.83 Aortic Valve LVOT Area2.86 cm2AoV Area Vmax2.33 cm2 LVOT Vmax 0.80 m/sAoV Area/ BSA (Vmax)1.27 cm2/m2 LVOT Mean Robbie.0.57 m/sAVA Mean Robbie.1.97 cm2 LVOT Peak Grad 2.5 mmHgAVA Mean Robbie. Index1.08 cm2/m2 LVOT Mean Grad 1.5 mmHg LVOT VTI0.176 m LVOT Diam s 1.90 cm AoV Vmax0.98 m/s Velocity Ratio 0.81 AoV Mean Robbie.0.83 m/s AoV Peak Grad3.8 mmHg LVOT SV 50.29 mL AoV Mean Grad2.9 mmHg AoV VTI0.217 m AoV Area VTI2.32 cm2 AoV Area/ BSA (VTI)1.27 cm/m2 Mitral Valve MV DT 120 (160-240 msec)MR Vmax 3.45 m/s MV PHT35 msecMR VTI 1.266 m MV Area PHT 6.31 cm2MR Peak Grad 47.7 mmHg MV VTI 0.243 mMR Mean Grad 38.2 mmHg MV Area VTI 2.07 (4.0-6.0 cm2) Pulmonary Valve PV Vmax 0.52 (0.5-1.5 m/s)RVOT Peak Gr.0.59 mmHg PV Peak Grad 1.1 mmHgRVOT Mean Gr.0.35 mmHg PV Mean Grad 0.6 mmHgRVOT VTI0.077 m PV VTI 0.086 mRVOT Vmax 0.38 m/s Tricuspid Valve TR Peak Grad 17.4 mmHgTR Vmax 2.09 m/s RA Pressure 3.00 mmHg RVSP (TR) 20.5 mmHg Ordered By: Shiraz Harrell CC: Dictated By: Anais Alvarado M.D. 12/23/20 1102 <Electronically signed by Anais Alvarado M.D. in OV> 12/23/20 1118 Transcribed By: Anais Alvarado MD This is privileged, confidential information intended only for the provider named. Any use or distribution by any person other than this provider is strictly prohibited. If you receive this report in error, please notify us immediately at [phone] and return the original report to us at the address above. Thank-you. Anesthesia Assessment and Plan Anesthesia History Personal History: No History of Anesthesia Complications Family History: No Family History of Anesthesia Complications Exercise Tolerance Exercise Tolerance: Metabolic Equivalents>4 Pertinent Negatives Pertinent Negatives: No Symptoms of GERD, No Major Pulmonary Symptoms or Complaints and No History of CVA/TIA Cardiac & Pulmonary Exam Cardiac Exam: Normal S1/S2 Heart Sounds Pulmonary Exam: Clear Bilateral Breath Sounds Implantable Cardiac Device Does patient have a Pacemaker or an ICD?: No Airway Exam Known Difficult Airway: No Mallampati Class: 1 Mouth Opening: Normal (> 3cm) Thyromental Distance: Greater than 3 cm Neck Range of Motion: Full ROM Neck Circumference: Normal Teeth Condition: Normal Dentition Airway Comments: Crowns in back ASA Classification ASA Score: ASA 2 Emergency Case?: No NPO Status NPO Status: NPO Clears >2 hours, Solids >8 hours Anesthesia Plan Resuscitation Status: Full Code Anesthesia Technique: General Anesthesia Airway Planned: Natural Airway Monitors Used: Standard Monitors Preoperative Comments:: Discussed lack of recent ECHO with Dr. Alvarado. She's okay with proceeding today as patient has been on steady anticoagulation.
--- NOTE | 2024-01-02 08:21 | W.CARDVER ---
Date of service: 01/02/24 Time of Service: 08:21 Cardioversion DATE OF PROCEDURE: 01/02/24 PRE-OP DIAGNOSES: atrial fibrillation POST-OP DIAGNOSES: same Indications: symptomatic atrial fibrillation Procedure Description: synchronised cardioversion Patient was brought to the operating room placed on continuous electrocardiographic and blood pressure monitoring. Anterior and posterior ZOLL pads were placed. She was sedated under the direction of the anesthesiologist. When adequate sedation was achieved 1 synchronized shock at 150 W seconds was delivered with episcopalian of sinus rhythm, rate 55-60. Patient was taken to postanesthesia care unit for further recovery
--- NOTE | 2024-01-02 08:23 | PDOC.DSDIS_ITS ---
Date of service: 01/02/24 Discharge Plan Disposition Patient Disposition: Home Condition: Stable Discharge Details Attending Provider: Anna Alvarado Primary Care Provider: Concha Valiente Home Meds and New Rx's Prescriptions: Continued cholecalciferol (vitamin D3) 50 mcg (2,000 unit) tablet 1,000 unit PO DAILY calcium citrate-vitamin D3 500 mg-12.5 mcg (500 unit) tablet,chewable 1 tab PO DAILY multivitamin Tablet 1 tab PO QAM Discontinued bisoprolol fumarate 10 mg tablet 10 mg PO DAILY Qty: 30 8RF No Action rivaroxaban 20 mg tablet 20 mg PO DAILY Qty: 90 3RF Rx Instructions: must administer with evening meal Discharge Instructions Stand Alone Forms: Anesthesia Discharge Inst., [facility] Cardioversion Post-Op, Thong Hernandez ([facility]) Referrals: Anna Alvarado MD [ [facility] STAFF PHYSICIAN] - 01/17/24 2:20 pm Discharge Orders Discharge Orders: Discharge Order (Routine); Ordered 01/02/24 Ordered By: Anna Alvarado
--- NOTE | 2024-01-02 08:45 | RT.EKG_ITS ---
APPROVED REPORT Exam: Resting ECG Reason for Exam: Post-op cardioversion Patient Location: O HR:58 bpm ECG Measurements Heart Rate 58 AXIS DE 162 P 57 QRSd 85 QRS 93 QT 426 T 58 QTc 418 Conclusion Sinus bradycardia...rate< 60 Probable left atrial enlargement...P >50mS, <-0.10mV V1 Right axis deviation...QRS axis ( 91,269) Low voltage, extremity and precordial leads...extremity<0.5mV, precordial<1.0mV
--- NOTE | 2024-01-02 11:45 | W.ANESPOSTOP ---
Postoperative Evaluation Date, Time and Location Date Performed: 01/02/24 Time Performed: 11:45 Patient Location: Day Surgery Unit Vital Signs Most Recent Imported Vital Signs: Most Recent Vital Signs Temp Pulse Resp BP Pulse Ox 36.4 C L 57 L 18 96/48 L 98 01/02/24 09:21 01/02/24 09:21 01/02/24 09:21 01/02/24 09:21 01/02/24 09:21 Pain Score Most Recent Pain Score: Most Recent Pain Score Pain Level 0 01/02/24 09:21 Assessment Mental Status: Awake (Alert & Oriented to Patient Baseline) Airway and Respiratory Function: Patent airway with normal (patient baseline) respiratory exam Cardiovascular Function: Hemodynamically Stable Hydration Status: Adequately Hydrated Nausea & Vomiting: No Nausea or Vomiting Pain: Pt. Denies Any Pain Peripheral Nerve Block: Patient did not receive a nerve block Postoperative Comments:: Seen earlier today. Postop orthostatics performed and appropriate. Patient denied questions and concerns.
== END 2024-01-02 09:36 | disposition home or self-care (01) ==
PROVIDERS: PCP Nurse Practitioner Adult Health; Visit Provider Internal Medicine Cardiovascular Disease
PROC: 5A2204Z Restoration of Cardiac Rhythm, Single (ICD-10-PCS; CPT 92960; principal; 2024-01-02 07:30)
DX: I48.91 Unspecified atrial fibrillation
CPT/HCPCS: 92960; 93005; 93010; J2003; J2371; J2704

== ENCOUNTER 2024-01-17 08:08 | Outpatient (CLI) | payer MEDICARE, SELFPAY ==
--- NOTE | 2024-01-17 08:00 | RT.EKG_ITS ---
APPROVED REPORT Exam: Resting ECG Reason for Exam: PAF Patient Location: O HR:52 bpm ECG Measurements Heart Rate 52 AXIS AL 151 P 54 QRSd 86 QRS 66 QT 421 T 52 QTc 392 Conclusion Sinus rhythm...normal P axis, V-rate 50- 99 Atrial premature complex...SV complex w/ short R-R interval Low voltage, precordial leads...precordial leads <1.0mV
== END 2024-01-17 08:09 | disposition home or self-care (01) ==
LOC: DI.CARD 08:09
PROVIDERS: PCP Nurse Practitioner Adult Health; Visit Provider Internal Medicine Cardiovascular Disease
DX: I48.0 Paroxysmal atrial fibrillation
CPT/HCPCS: 93010

== ENCOUNTER → 2024-01-17 14:00 | Outpatient (BNVA) | payer MEDICARE, SELFPAY | PROVIDERS: PCP Nurse Practitioner Adult Health; Referring Provider Nurse Practitioner Adult Health; Visit Provider Internal Medicine Cardiovascular Disease | DX: I48.0 Paroxysmal atrial fibrillation (principal); I48.3 Typical atrial flutter | CPT/HCPCS: 93005; 99213 ==

== ENCOUNTER 2024-04-20 09:29 | Outpatient (CLI) | payer MEDICARE, SELFPAY ==
--- NOTE | 2024-04-20 09:15 | DI.RAD_ITS ---
Exam(s) XR CHEST 2V PA LATERAL EXAM: XR CHEST 2V PA LATERAL CLINICAL HISTORY: rule out pneumonia, cough, R05.9 TECHNIQUE: 2D digital imaging was performed of the chest. Two images were obtained. PA and lateral views were obtained. COMPARISON: CR XR CHEST 2V PA LATERAL from 04/06/2018 CR XR PORTABLE CHEST AP from 12/10/2020 FINDINGS: MEDIASTINUM: Normal. HEART: Normal. PULMONARY VASCULATURE: Normal. LUNGS: Clear. PLEURAL SPACE: No pleural effusion or pneumothorax. BONE:Within normal limits for the patient's age. OTHER FINDINGS:Normal. IMPRESSION: No acute pulmonary findings. DATA REPOSITORY: RADIATION DOSE DELIVERED:
== END 2024-04-20 09:49 ==
LOC: DI 09:29
PROVIDERS: PCP Nurse Practitioner Adult Health; Visit Provider Nurse Practitioner Family
DX: R05.9 Cough, unspecified (principal)
CPT/HCPCS: 71046

== ENCOUNTER 2024-04-27 00:06 | Outpatient (CLI) | payer MEDICARE, SELFPAY ==
--- NOTE | 2024-04-27 07:00 | DI.MAMMO_ITS ---
Exam(s) MAMMO SCREENING EXAM: MAMMO SCREENING CLINICAL HISTORY: screening,z12.39 TECHNIQUE: Mammograms were interpreted according to the usual protocol including computer analysis w [employer] CAD system, tomosynthesis and C-view imaging. COMPARISON: 2014 through 2022 FINDINGS: The breasts are composed of scattered fibroglandular densities, Breast Density category B. No suspicious masses or suspicious microcalcifications are seen. No skin thickening or abnormal axillary lymph nodes are seen. There has been no significant change from prior exams. IMPRESSION: BI-RADS Category 1, Negative mammogram Yearly screening mammography is recommended. Breast Density - Category B, scattered fibroglandular densities. A negative radiographic report should not delay biopsy if a dominant or clinically suspicious mass is present. Up to ten percent of cancers are not identified on mammography. A negative report may reinforce clinical impression. Adenosis and dense breasts may obscure an underlying neoplasm. False positive reports average 6 to 10%. Patient will receive a letter notifying them of these results.
== END 2024-04-27 00:26 ==
LOC: DI 00:06
PROVIDERS: PCP Nurse Practitioner Adult Health; Visit Provider Nurse Practitioner Adult Health
DX: Z12.31 Encounter for screening mammogram for malignant neoplasm of breast (principal); R92.323 Mammographic fibroglandular density, bilateral breasts
CPT/HCPCS: 77063; 77067

== ENCOUNTER 2024-10-09 08:40 | Outpatient (CLI) | payer MEDICARE, SELFPAY ==
--- NOTE | 2024-10-09 08:30 | RT.EKG_ITS ---
APPROVED REPORT Exam: Resting ECG Reason for Exam: PAF Patient Location: O HR:128 bpm ECG Measurements Heart Rate 128 AX[address] [place] [id number] P [id number] QRSd 78 QRS 57 QT 302 T 26 QTc 441 Conclusion Atrial fibrillation...? atrial activity Low voltage, precordial leads...precordial leads <1.0mV
== END 2024-10-09 08:41 | disposition home or self-care (01) ==
LOC: DI.CARD 08:40
PROVIDERS: PCP Nurse Practitioner Adult Health; Visit Provider Internal Medicine Cardiovascular Disease
DX: I48.0 Paroxysmal atrial fibrillation (principal)
CPT/HCPCS: 93010

== ENCOUNTER → 2024-10-09 10:42 | Outpatient (BNVA) | payer MEDICARE, SELFPAY | PROVIDERS: PCP Nurse Practitioner Adult Health; Referring Provider Nurse Practitioner Adult Health; Visit Provider Internal Medicine Cardiovascular Disease | DX: I48.0 Paroxysmal atrial fibrillation (principal) | CPT/HCPCS: 99214; 93005 ==

== ENCOUNTER 2024-10-24 02:09 | Outpatient (CLI) | payer MEDICARE, SELFPAY ==
--- NOTE | 2024-10-24 08:30 | DI.US_ITS ---
APPROVED REPORT EXAM: Comprehensive 2D, Doppler, and color-flow Echocardiogram Patient Location: Out-Patient Organic Gardening Teacher: José Miguel Joya RDCS (AE) Indications: Recheck LV function, paroxysmal afib Other Information Study Quality: Fair. Technically limited study due to body habitus. Conclusion Normal left ventricular wall thickness and chamber size. Ejection fraction is 55 to 60%. There are no segmental wall motion abnormalities. Patient is in atrial fibrillation with [id number] variation Normal right ventricular size and function Severely enlarged left atrium. Moderately enlarged right atrium The aortic valve is mildly sclerotic and trileaflet without stenosis or regurgitation Mild mitral and tricuspid regurgitation Normal estimated right ventricular systolic pressure 24 mmHg Ascending aorta measures 3.48 cm Wall motion Left Ventricle The left ventricle is normal size. The left ventricular systolic function is normal. The left ventricular ejection fraction is within the normal range. There is normal left ventricular wall thickness.. There is normal LV segmental wall motion. There is no ventricular septal defect visualized. LVEF is 55-60%. Right Ventricle The right ventricle is normal size. The right ventricular systolic function is normal. Atria Left atrium is severely dilated. Right atrium is moderately dilated. The interatrial septum is intact with no evidence for an atrial septal defect. Aortic Valve The aortic valve is mildly sclerotic and trileaflet There is no aortic valvular stenosis. No aortic regurgitation is present. Mitral Valve The mitral valve is normal in structure. No evidence of mitral valve stenosis. Mild mitral regurgitation. Tricuspid Valve The tricuspid valve is normal in structure. There is no tricuspid valve stenosis. Mild tricuspid regurgitation. The RVSP is 23.4 mmHg. Pulmonic Valve The pulmonary valve is normal in structure. There is no pulmonic valvular stenosis. There is no pulmonic valvular regurgitation. Great Vessels The aortic root is normal in size. The ascending aorta is mildly dilated. Aortic arch is normal in caliber. IVC is normal in size and collapses >50% with inspiration. Pericardium There is no pericardial effusion. 2D Dimensions IVSD d PLAX 1.10 cm F: 0.6-1.0 Ao Root d 2.55 cm F: 2.7 - 3.3 LVPW d PLAX 0.96 cm F: 0.6 - 1.0 Ao Asc Diam d 3.48 cm F: 2.3 - 3.1 LVID d PLAX 4.13 cm F: 3.8 - 5.2 LVDs 3.33 cm F: 2.2 - 3.5 LV EF Teichholz 40.5 % FS 19.48 % LV EDV (Teich) 75.6 mL LV ESV (Teich) 45.0 mL Stroke Vol Index (Teich) 16.35 Auto EF LV EDV A4C 71.5 mL LV EDV A2C 69.0 mL LV EDV BP LV ESV A4C 41.1 mL LV ESV A2C 38.4 mL LV ESV BP LVEF(%) A4C 42.5 % LVEF(%) A2C 44.4 % LVEF(%) BP LV SV A4C 30.4 ml LV SV A2C 30.7 ml LV SV BP LV CO A4C 2.8 L/min LV CO A2C 3.4 L/min LV CO BP HR A4C 92.08 BPM HR A2C 109.76 BPM LV EDV Index (BP) LA Volume LA Length A4C 5.4 cm LA Length A2C 5.9 cm LA Area A4C s 21.98 cm2 LA Area A2C s 20.09 cm2 LA Vol A4C A-L 76.12 mL LA Vol A2C A-L 57.67 mL LA Vol Biplane A-L 69.6 mL LA Vol/BSA A4C A-L LA Vol/BSA A2C A-L LA Vol/BSA BP A-L 37.2 mL/m2 LA Vol A4C MOD 70.6 mL LA Vol A2C MOD 55.5 mL LA Vol BP MOD 65.6 mL RA Volume RA Area A4C 10.9 cm2 RA ESV A4C (A-L) 20.1mL RA Vol/BSA A4C A-L RA Length A4C 5.0 cm RA ESV A4C (MOD) 19.6mL LV Diastology MV E' medial 0.124 (>0.07 m/s) MV E Vmax 0.97 (0.4-1.3 m/s) MV E' lateral 0.128 (>0.1 m/s) Aortic Valve AoV Vmax 1.09 m/s LVOT Vmax 0.92 m/s AoV Peak Grad 4.8 mmHg LVOT Peak Grad 3.4 mmHg AoV Area (Vmax) 2.79 cm2 LVOT VTI 0.171 m AoV VTI 0.232 m LVOT Mean Grad 1.7 mmHg AoV Mean Robbie. 0.85 m/s LVOT SV 56.71 mL AoV Mean Grad 3.2 mmHg LVOT Diam s 2.05 cm AoV Area (VTI) 2.44 cm2 AV Regurg Peak Gr. 4.75 mmHg Velocity Ratio 0.84 Pulmonary Valve PV Vmax 0.62 (0.5-1.5 m/s) RVOT Vmax 0.49 m/s PV Peak Grad 1.6 mmHg RVOT Peak Gr. 1.0 mmHg PV Mean Robbie 0.45 m/s RVOT VTI 0.093 m PV Mean Grad 0.9 mmHg RVOT Mean Gr. 0.5 mmHg Tricuspid Valve RA Pressure 3.00 mmHg TR Vmax 2.26 m/s TR Peak Grad 20.4 mmHg RVSP (TR) 23.4 mmHg
== END 2024-10-24 02:29 ==
LOC: DI 02:09
PROVIDERS: PCP Nurse Practitioner Adult Health; Visit Provider Internal Medicine Cardiovascular Disease
DX: I48.0 Paroxysmal atrial fibrillation (principal); I08.0 Rheumatic disorders of both mitral and aortic valves
CPT/HCPCS: 93306

== ENCOUNTER → 2024-10-26 08:26 | Outpatient (BNVA) | payer MEDICARE, SELFPAY | PROVIDERS: PCP Nurse Practitioner Adult Health; Referring Provider Nurse Practitioner Adult Health; Visit Provider Internal Medicine Cardiovascular Disease | DX: I48.0 Paroxysmal atrial fibrillation (principal); R06.02 Shortness of breath | CPT/HCPCS: 99214 ==

== ENCOUNTER 2024-11-06 06:06 | Day surgery (SDC) | payer MEDICARE, SELFPAY ==
--- NOTE | 2024-11-06 06:21 | W.ANESPRE ---
General Info Date of Service Date Performed: 11/06/24 Height: 5 ft 5 in Weight: 79.379 kg Body Mass Index (BMI): 29.1 Surgical Procedure: Operation Date: 11/06/24 07:30 Proposed Procedure Side Surgeon p Cardioversion Anais Alvarado MD Meds Allergies and Home Medications Allergies Allergy/AdvReac Type Severity Reaction Status Date / Time No Known Allergies Allergy Verified 11/06/24 06:23 Home Medication ?Medication ?Instructions ?Recorded calcium 500 mg (as citrate)-vit D3 1 tab PO DAILY 12/21/21 12.5 mcg (500 unit) chewable tablet cholecalciferol (vitamin D3) 50 1,000 unit PO DAILY 12/28/23 mcg (2,000 unit) tablet multivitamin 1 tab PO QAM 12/28/23 rivaroxaban 20 mg tablet 20 mg PO DAILY #90 tabs 02/23/24 bisoprolol fumarate 5 mg tablet 7.5 mg (1.5 x 5 mg) PO DAILY #120 10/09/24 tabs amiodarone 200 mg tablet 200 mg PO BID #90 tabs 10/26/24 Current Visit Medications: Current Medications Generic Name Dose Route Start Last Admin Trade Name Freq PRN Reason Stop Dose Admin Sodium Chloride 1,000 mls @ 30 mls/hr 11/06/24 06:00 Saline 1000ml Bag IV 12/06/24 05:59 INFUSION SANDY IV Miscellaneous Supplies 1 each 11/06/24 06:00 Iv Access IV 12/05/24 23:59 DIRECTED SANDY Sodium Chloride 0 ml 11/06/24 06:00 Normal Saline Flush 10 Ml Syr IV 12/05/24 23:59 PRN PRN Sodium Chloride 0 ml 11/06/24 06:00 Normal Saline 10 Ml Vial IJ 12/05/24 23:59 DIRECTED PRN Sterile Water 0 ml 11/06/24 06:00 Water,Injection,Sterile 10 Ml Vial IJ 12/05/24 23:59 DIRECTED PRN PFSH Active Problems Active Problems: Problem Status Onset Code Cough Acute R05.9 Family history of dementia Chronic Z81.8 Mild obstructive sleep apnea Chronic ~07/2021 G47.33 Sessile colonic polyp Acute K63.5 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 denies Atrial fibrillation (~12/2020) Cardiology Functional disorder of intestine Globus sensation Optic neuritis (~2009) Cardiac arrhythmia Afib and pVc Hiatal hernia Cholelithiasis pt. denies Anxiety Depression Multiple sclerosis (~2009) In remission--2019; no longer seeing neuro History of lumbar puncture Polyp of cervix Surgical History Surgical History History of ankle surgery Ankle fracture, right s/p ORIF 2000 or 2004 Ankle fracture, left s/p ORIF 2000 or 2004 History of appendectomy 1967 History of colposcopy with cervical biopsy Tobacco Smoking/Tobacco Use Status: Never Passive smoking exposure: No Alcohol Alcohol Intake: current Alcohol intake frequency: a few times a month Alcohol type: beer and wine Substance Use Substance use: Never Substance use type: does not use Vital Signs and Lab Results Vital Signs Most Recent Vital Signs in EMR: Temp Pulse Resp BP Pulse Ox 36.7 C 92 H 18 120/75 96 11/06/24 06:34 11/06/24 06:34 11/06/24 06:34 11/06/24 06:34 11/06/24 06:34 Imaging and Studies Imaging and Studies Study information below may be from another EMR and interpreted by another provider. Please see original notes in EMR for more complete details. EKG Summary: EKG PATIENT NAME: Elissa Truong UNIT #: [id number] ORDERING PROVIDER: Anais Alvarado M.D. PRIMARY CARE PROVIDER: NATY SHAH NP DATE/TIME OF SERVICE: 12/08/23 1327 : 1950 PERFORMING LOCATION: .CARD APPROVED REPORT Exam: Resting ECG Reason for Exam: afib Patient Location: O HR:126 bpm ECG Measurements Heart Rate 126 AXIS MT [id number] P [id number] QRSd 87 QRS 67 QT 309 T-5 QTc 448 Conclusion Atrial flutter...A-rate 308 Low voltage, precordial leads...precordial leads <1.0mV <Electronically signed by ANAIS ALVARADO MD in OV> E-Sign Date: 12/08/23 E-Sign Time: 1515 Echocardiogram Summary: Patient Name: Elissa Truong Unit #: [id number] Loc: ICU Ordering Provider: Shiraz Harrell Status: ADM GERHARD Primary Care Provider: Adalgisa Cho M.D. Date of Exam: 12/23/20 Sex: F Admission Date: 12/22/20 : 1950 Age: 70 APPROVED REPORT EXAM: Comprehensive 2D, Doppler, and color-flow Echocardiogram Patient Location: In-Patient Room/Bed: [id number] Forest Supervisor: Tonia De La Rosa RDCS (AE) Indications: Chest pain, A Fib Other Information Study Quality: Adequate Conclusion Normal left ventricular wall thickness and chamber size. Estimated ejection fraction is 60%. Wall motion is normal Normal right ventricular size and systolic function Both atria are normal in size Trileaflet aortic valve without stenosis or regurgitation Normal tricuspid valve with trace to mild regurgitation. Estimated right ventricular systolic pressure is normal, 20 mmHg Normal mitral valve with mild regurgitation Wall motion Left Ventricle The left ventricle is normal size. The left ventricular systolic function is normal. The left ventricular ejection fraction is within the normal range. There is normal left ventricular wall thickness. There is normal LV segmental wall motion. There is no ventricular septal defect visualized. LVEF is 60%. Right Ventricle Right ventricle is grossly normal in size. Right ventricular systolic function is grossly normal. The RVSP is 20.5mmHg. Atria The left atrium size is normal. The right atrium size is normal. The interatrial septum is intact with no evidence for an atrial septal defect. Aortic Valve The aortic valve is normal in structure. Aortic valve is trileaflet. There is no aortic valvular stenosis. No aortic regurgitation is present. Mitral Valve The mitral valve is normal in structure. No evidence of mitral valve stenosis. Mild mitral regurgitation. Tricuspid Valve The tricuspid valve is normal in structure. There is no tricuspid valve stenosis. Trace to mild tricuspid regurgitation. Pulmonic Valve The pulmonary valve is normal in structure. There is no pulmonic valvular stenosis. There is no pulmonic valvular regurgitation. Great Vessels The aortic root is normal in size. The ascending aorta is mildly dilated. Aortic arch is normal in caliber. IVC is normal in size and collapses >50% with inspiration. Pericardium There is no pericardial effusion. 2D Dimensions IVSD d PLAX 0.72 cm F: 0.6-1.0LV Vol A2C d MOD 85.8 mL LVPW d PLAX 0.73 cm F: 0.6 - 1.0LV Vol A4C d MOD 83.0 mL LVID d PLAX 4.44 cm F: 3.8 - 5.2LA vol/ BSA A2C s A-L37.1 mL/m2 LVDs 3.15 cm F: 2.2 - 3.5LA vol/ BSA A4C s A-L41.1 mL/m2 Ao Root d 2.94 cm F: 2.7 - 3.3LA Vol/ BSA Biplane s A-L 41.6 mL/m2 RA Area A4C14.74 cm2LA Area A4C s MOD 23.38 cm2 RA Vol/ BSA A4C s A-L 21.0 mL/m2LA Area A2C s MOD 20.87 cm2 Ao Asc Diam d 3.49 cm F: 2.3 - 3.1LV EF A4C MOD 58.1 % LV EF Teichholz 55.6 %LV EF A2C MOD 57.8 % LVEF (Gonsalez's)57.96 % F: 54 - 74LV EF Biplane MOD 58.0 % LV Zyckhf41.95 mL F: 46 - 715OZ00.41 mL LV Volume Index36.23 mL/m2 F: 29 - 61SV Index27.03 mL/m2 LV Vol Biplane MOD 85.2 mL FS28.75 % M-Mode TAPSE 1.83 cm (M/F) >1.7 LV Diastology MV E' medial0.127 (>0.07 m/s)E/A Ratio 2.2 LV E/e MED6.75 (<14)MV E Vmax 0.86 (0.4-1.3 m/s) MV E' lateral0.110 (>0.1 m/s)MV A Vmax 0.40 (0.4-1.3 m/s) LV E/e LAT7.80 (<14)MV E/A Ratio 2.07 MV E/E' medial 6.78 MV E/E' lateral7.83 Aortic Valve LVOT Area2.86 cm2AoV Area Vmax2.33 cm2 LVOT Vmax 0.80 m/sAoV Area/ BSA (Vmax)1.27 cm2/m2 LVOT Mean Robbie.0.57 m/sAVA Mean Robbie.1.97 cm2 LVOT Peak Grad 2.5 mmHgAVA Mean Robbie. Index1.08 cm2/m2 LVOT Mean Grad 1.5 mmHg LVOT VTI0.176 m LVOT Diam s 1.90 cm AoV Vmax0.98 m/s Velocity Ratio 0.81 AoV Mean Robbie.0.83 m/s AoV Peak Grad3.8 mmHg LVOT SV 50.29 mL AoV Mean Grad2.9 mmHg AoV VTI0.217 m AoV Area VTI2.32 cm2 AoV Area/ BSA (VTI)1.27 cm/m2 Mitral Valve MV DT 120 (160-240 msec)MR Vmax 3.45 m/s MV PHT35 msecMR VTI 1.266 m MV Area PHT 6.31 cm2MR Peak Grad 47.7 mmHg MV VTI 0.243 mMR Mean Grad 38.2 mmHg MV Area VTI 2.07 (4.0-6.0 cm2) Pulmonary Valve PV Vmax 0.52 (0.5-1.5 m/s)RVOT Peak Gr.0.59 mmHg PV Peak Grad 1.1 mmHgRVOT Mean Gr.0.35 mmHg PV Mean Grad 0.6 mmHgRVOT VTI0.077 m PV VTI 0.086 mRVOT Vmax 0.38 m/s Tricuspid Valve TR Peak Grad 17.4 mmHgTR Vmax 2.09 m/s RA Pressure 3.00 mmHg RVSP (TR) 20.5 mmHg Ordered By: Shiraz Harrell CC: Dictated By: Anais Alvarado M.D. 12/23/20 1102 <Electronically signed by Anais Alvarado M.D. in OV> 12/23/20 1118 Transcribed By: Anais Alvarado MD This is privileged, confidential information intended only for the provider named. Any use or distribution by any person other than this provider is strictly prohibited. If you receive this report in error, please notify us immediately at [phone] and return the original report to us at the address above. Thank-you. Anesthesia Assessment and Plan Anesthesia History Personal History: No History of Anesthesia Complications Family History: No Family History of Anesthesia Complications Exercise Tolerance Exercise Tolerance: Metabolic Equivalents>4 Cardiac & Pulmonary Exam Cardiac Exam: Normal S1/S2 Heart Sounds Pulmonary Exam: Clear Bilateral Breath Sounds Implantable Cardiac Device Does patient have a Pacemaker or an ICD?: No Airway Exam Known Difficult Airway: No Mallampati Class: 1 Mouth Opening: Normal (> 3cm) Thyromental Distance: Greater than 3 cm Neck Range of Motion: Full ROM Neck Circumference: Normal Teeth Condition: Normal Dentition Airway Comments: Crowns in back ASA Classification ASA Score: ASA 2 Emergency Case?: No NPO Status NPO Status: NPO Clears >2 hours, Solids >8 hours Anesthesia Plan Resuscitation Status: Full Code Anesthesia Technique: General Anesthesia Airway Planned: Natural Airway Monitors Used: Standard Monitors Preoperative Comments:: 73 yo for cardioversion. Sig PMHx: Afib/flutter (amio, rivaroxaban), SOFYA, hiatal hernia, MS (remission), depression/anxiety. ECG: afib. ECHO: LVEF 55-60%, sclerotic AV, mild MR/TR. Previous Anes: - CV x 2, prop/lido, no issues.
[2024-11-06 06:34] VITALS: BP 120/75; PULSE 92; RESP 18; TEMP 36.7; O2SAT 96
[2024-11-06] MEDS: Normal Saline 1,000 ML 30 ML IV (06:46)
[2024-11-06 07:00] VITALS: BMI 29.1
--- NOTE | 2024-11-06 07:30 | RT.EKG_ITS ---
APPROVED REPORT Exam: Resting ECG Reason for Exam: pre op EKG Patient Location: O HR:83 bpm ECG Measurements Heart Rate 83 AXIS VA [id number] P [id number] QRSd 85 QRS 94 QT 372 T 42 QTc 436 Conclusion Atrial fibrillation...V-rate 69- 86, irreg A-activity Right axis deviation...QRS axis ( 91,269) Low voltage, extremity and precordial leads...extremity<0.5mV, precordial<1.0mV
--- NOTE | 2024-11-06 07:45 | RT.EKG_ITS ---
APPROVED REPORT Exam: Resting ECG Reason for Exam: Post op EKG Patient Location: O HR:56 bpm ECG Measurements Heart Rate 56 AXIS PA 170 P 36 QRSd 91 QRS 101 QT 466 T 18 QTc 451 Conclusion Sinus bradycardia...rate< 60 Right axis deviation...QRS axis ( 91,269) Low voltage, precordial leads...precordial leads <1.0mV
--- NOTE | 2024-11-06 07:50 | CARD_ITS ---
Date of service: 11/06/24 Time of Service: 07:50 Cardioversion DATE OF PROCEDURE: 11/06/24 PRE-OP DIAGNOSES: Atrial fibrillation POST-OP DIAGNOSES: same Indications: Recurrent atrial fibrillation Patient presented for synchronized cardioversion for symptomatic recurrent atrial fibrillation. Informed consent was obtained. Patient attested to continuous anticoagulation for a minimum of 3 weeks. She was brought to the operating room and sedated under direction of the assistant store manager operations. Anterior and posterior ZOLL pads were placed. When adequate anesthesia was achieved there was 1 synchronized shock at 150 W seconds delivered. Subsequent rhythm was sinus bradycardia. The patient tolerated the procedure without complications and was taken to the recovery area. She will be discharged when fully awake.
[2024-11-06 07:52] VITALS: BP 88/38; PULSE 54; RESP 12; TEMP 36.3; O2SAT 95
--- NOTE | 2024-11-06 07:52 | W.PM.DSUDISC ---
Date of service: 11/06/24 Discharge Plan Disposition Patient Disposition: Home Discharge Details Attending Provider: Anna Alvarado Primary Care Provider: Concha Valiente Home Meds and New Rx's Prescriptions: New bisoprolol fumarate 2.5 mg tablet 2.5 mg PO DAILY Qty: 90 1RF Discontinued bisoprolol fumarate 5 mg tablet 7.5 mg PO DAILY Qty: 120 8RF No Action cholecalciferol (vitamin D3) 50 mcg (2,000 unit) tablet 1,000 unit PO DAILY calcium citrate-vitamin D3 500 mg-12.5 mcg (500 unit) tablet,chewable 1 tab PO DAILY multivitamin Tablet 1 tab PO QAM amiodarone 200 mg tablet 200 mg PO BID Qty: 90 5RF rivaroxaban 20 mg tablet 20 mg PO DAILY Qty: 90 3RF Rx Instructions: must administer with evening meal Discharge Orders Discharge Orders: Discharge Order (Routine); Ordered 11/06/24 Ordered By: Anna Alvarado
[2024-11-06 08:01] VITALS: BP 104/74
--- NOTE | 2024-11-06 08:03 | W.ANESPOSTOP ---
Postoperative Evaluation Date, Time and Location Date Performed: 11/06/24 Time Performed: 08:03 Patient Location: Day Surgery Unit Vital Signs Most Recent Imported Vital Signs: Most Recent Vital Signs Temp Pulse Resp BP Pulse Ox 36.3 C L 54 L 12 104/74 95 11/06/24 07:52 11/06/24 07:52 11/06/24 07:52 11/06/24 08:01 11/06/24 07:52 Pain Score Most Recent Pain Score: Most Recent Pain Score Pain Level 0 11/06/24 07:52 Assessment Mental Status: Awake (Alert & Oriented to Patient Baseline) Airway and Respiratory Function: Patent airway with normal (patient baseline) respiratory exam Cardiovascular Function: Hemodynamically Stable Hydration Status: Adequately Hydrated Nausea & Vomiting: No Nausea or Vomiting Pain: Pt. Denies Any Pain Peripheral Nerve Block: Patient did not receive a nerve block
[2024-11-06 08:21] VITALS: BP 100/64; PULSE 56; RESP 14; TEMP 36.8; O2SAT 96
== END 2024-11-06 08:55 | disposition home or self-care (01) ==
PROVIDERS: PCP Nurse Practitioner Adult Health; Visit Provider Internal Medicine Cardiovascular Disease
PROC: 5A2204Z Restoration of Cardiac Rhythm, Single (ICD-10-PCS; CPT 92960; principal; 2024-11-06 07:30)
DX: I48.91 Unspecified atrial fibrillation (principal); I48.92 Unspecified atrial flutter; G47.33 Obstructive sleep apnea (adult) (pediatric)
CPT/HCPCS: 92960; 93005; 93010; J2371; J2704

== ENCOUNTER 2024-11-20 08:48 | Outpatient (CLI) | payer MEDICARE, SELFPAY ==
--- NOTE | 2024-11-20 08:45 | RT.EKG_ITS ---
APPROVED REPORT Exam: Resting ECG Reason for Exam: PAF Patient Location: O HR:56 bpm ECG Measurements Heart Rate 56 AXIS OK 165 P 55 QRSd 87 QRS 69 QT 457 T 62 QTc 442 Conclusion Sinus rhythm...normal P axis, V-rate 50- 99 Probable left atrial enlargement...P >50mS, <-0.10mV V1 Low voltage, precordial leads...precordial leads <1.0mV
== END 2024-11-20 08:49 | disposition home or self-care (01) ==
LOC: DI.CARD 08:48
PROVIDERS: PCP Nurse Practitioner Adult Health; Visit Provider Internal Medicine Cardiovascular Disease
DX: I48.0 Paroxysmal atrial fibrillation (principal); I48.3 Typical atrial flutter; I51.7 Cardiomegaly
CPT/HCPCS: 93010

== ENCOUNTER → 2024-11-20 09:28 | Outpatient (BNVA) | payer MEDICARE, SELFPAY | PROVIDERS: PCP Nurse Practitioner Adult Health; Referring Provider Nurse Practitioner Adult Health; Visit Provider Internal Medicine Cardiovascular Disease | DX: I48.0 Paroxysmal atrial fibrillation (principal); I48.3 Typical atrial flutter | CPT/HCPCS: 99213; 93005 ==